=== PATIENT | male | born 1950 | race Caucasian/White ===

== ENCOUNTER 2022-03-10 15:00 | Outpatient (RCR) | payer OTHER, SELFPAY | END 2022-06-13 09:45 | disposition home or self-care (01) | PROVIDERS: PCP Family Medicine; Visit Provider Family Medicine | DX: M54.50 Low back pain, unspecified (principal); M51.36 Other intervertebral disc degeneration, lumbar region; Z51.89 Encounter for other specified aftercare | CPT/HCPCS: 97110; 97162 ==

== ENCOUNTER 2022-09-14 08:19 | Outpatient (CLI) | payer OTHER, SELFPAY | END 2022-09-14 08:20 | disposition home or self-care (01) | LOC: NFLDREF 09-22 11:53 | PROVIDERS: PCP Family Medicine; Referring Provider Family Medicine; Visit Provider Family Medicine | DX: Z00.00 Encounter for general adult medical examination without abnormal findings (principal); R79.89 Other specified abnormal findings of blood chemistry; E78.5 Hyperlipidemia, unspecified; I10 Essential (primary) hypertension; E55.9 Vitamin D deficiency, unspecified | CPT/HCPCS: 80053; 80061; 82306 ==

== ENCOUNTER 2024-01-24 07:54 | Outpatient (CLI) | payer OTHER, SELFPAY | END 2024-01-24 07:55 | disposition home or self-care (01) | LOC: NFLDREF 11:31 | PROVIDERS: PCP Family Medicine; Referring Provider Family Medicine; Visit Provider Family Medicine | DX: I10 Essential (primary) hypertension (principal); E78.5 Hyperlipidemia, unspecified; E55.9 Vitamin D deficiency, unspecified; R79.89 Other specified abnormal findings of blood chemistry; E66.9 Obesity, unspecified; D51.8 Other vitamin B12 deficiency anemias; E53.8 Deficiency of other specified B group vitamins | CPT/HCPCS: 80053; 80061; 82306; 82607; 82728; 83540; 83550 ==

== ENCOUNTER 2024-04-26 09:48 | Outpatient (CLI) | payer OTHER, SELFPAY ==
--- OUTSIDE RECORDS SUMMARY | 2024-04-26 13:35 | XMS_ITS | Continuity of Care Document ---
Author Organization [facility] Address [address] [place] [address] Phone Care Team Providers Care Net C Developer Name Role Phone Jasen Lock Unavailable Unavailable Allergies, Adverse Reactions, Alerts Substance Reaction Status Criticality No Known Allergies Active No Inform ation Medications Medication Instructions Dosage Effective Dates (start - stop) Status Comments LISINOPRIL (unknown strength) Not Available - Active Procedures Procedure Date Office/Outpatient Visit,Est, Mod 2018 X-Ray Exam Lower Spine 2-3 Views 2018 Office/Outpatient Visit,Est, Mod 2016 X-Ray Exam Lower Spine 2-3 Views 2016 Office/Outpatient Visit,Est, Mod 2016 X-Ray Exam Lower Spine 2-3 Views 2016 Office/Outpatient Visit,Est, Mod 2016 X-Ray Exam Lower Spine 2-3 Views 2016 Postop Followup Visit X-Ray Exam Lower Spine 2-3 Views 2015 Arthdsis Post/Posterolatrl/Postinterbody Lumbar Arthdsis Post/Posterlatrl/Postintrbdyadl Spc/Seg Spine Fusion, Each Add'Lvertebra 2015 Remove Lumbar Spine Lamina, 1 Seg Insert Spine Seg Fix, Post, 3-6 Seg Apply Spinal Prosthetic Device 16 Autograft, Spine Surg, Morselized Autograft, Spine Surgery, Local 016 Allograft, Spine Surg, Morselized Pa Arthdsis Post/Posterolatrl/Postinterb benita Lumbar Pa Arthdsis Post/Posterlatrl/Postintrbdy adl Spc/Seg Pa Assist Spine Fusion, Each Add'Lverteb ra Remove Lumbar Spine Lamina, 1 Seg Pa Assist Insert Spine Seg Fix, Post, 3- 6 Seg Pa Assist Apply Spinal Prosthetic Device Pa Assist Autograft, Spine Surg, Morsebandar zed Postop Followup Visit Remove Lumbar Spine Lamina, 1 Seg Pa Assist Remove Lumbar Spine Lamina, 1 Seg Office/Outpatient Visit,Est, Mod 2015 Office/Outpatient Visit,Est, Mod 2014 Office/Outpatient Visit,New, Low 2014 Advance Directives Directive Yes / No Effective Date File Name No Information Encounters Encounter Description Practice Location Reason(s) For Visit Diagnoses Date Provider Providers Copied on Encounter Office/Outpa tient Visit,Est, Mod [facility], [address], [place], [place], [id number] , [phone] [facility] Other spondylosis, lumbar region 9 Aris Aggarwal. [facility], [address] [place] [address] [address], [place], [place], [id number], [place]. tel:[phone] Referring Provider: Josh Keith, [facility] [address], [place], [address]. tel:[phone] Office/Outpa tient Visit,Est, Mod [facility], [address], [place], [place], [id number] , [place] tel:[phone] [facility] Spinal stenosis, lumbar region NOS 7 Navin Oseguera. [facility], [address] [facility] , [place], [address], [place]. tel:[phone] Referring Provider: Josh Keith, [facility] [address], [place], [address]. tel:[phone] Office/Outpa tient Visit,Est, Mod [facility], [address], [place], [place], [id number] , [place] tel: [phone] [facility] Spinal stenosis, lumbar region 7 Navin Oumar. [facility], [address] [facility] [place], [address], [place]. tel:[phone] Referring Provider: Josh Keith, [facility] [address] [facility], [place], [address]. tel:[phone] Office/Outpa tient Visit,Est, Mod [facility], [address], [place], [place], [id number] , [place] tel: [phone] [facility] Spinal stenosis, lumbar region Fe 7 Navin Oseguera. [facility], [address] [place], [address], [place]. tel:[phone] Referring Provider: Josh Keith, [facility] [address] [facility], [place], [address]. tel:[phone] [facility], [address], [facility], [id number] , [place] tel: [phone] [facility] - [facility] Encounter for other specified surgical aftercare 6 Aris Aggarwal. [facility], [address] [place] [address] [address], [facility] [place], [id number], [place]. tel:[phone] Referring Provider: Josh Keith, [facility] [address] [facility], [place], [address]. [phone] [facility], [address], [facility] [place], [id number] , [place] tel: [phone] [facility] [place] Arthrodesis status 6 Navin Oseguera. [facility], [address] [facility] [address] [place], [place], [address], [place]. tel:[phone] [facility], [address], [place], [place], [id number] , [place] tel: [phone] [facility] No Information 6 Navin Oseguera. [facility], [address], [place], [address], [place]. tel:[phone] Referring Provider: Josh Keith, [facility] [address] [place], [address]. [phone] [facility], [address], [place], [place], [id number] , [place] tel: [phone] [facility] - [facility] Spinal stenosis, lumbar region Sep- 6 Aris Aggarwal. [facility], [address] [place] [address] [address], [place], [place], [id number], [place]. tel:[phone] Referring Provider: Josh Keith, [facility] [address] [place], [address]. [phone] [facility], [address], [place], [place], [id number] , [place] [phone] [facility] No Information 6 Navin Oseguera. [facility], [address], [place], [address], [place]. tel:[phone] Referring Provider: Josh Keith, [facility] [address] [place], [address]. tel:[phone] Office/Outpa tient Visit,Est, Mod [facility], [address], [place], [place], [id number] , [place] tel:[phone] [facility] - [facility] OverweightSpinal stenosis, lumbar region 6 Navin Oseguera. [facility], [address], [place], [address], [place]. tel:[phone] Referring Provider: Josh Keith, [facility] [address] [place], [address]. tel:[phone] Office/Outpa tient Visit,Est, Mod [facility], [address], [place] , [place], [id number] , [place] tel:[phone] [facility] Spinal stenosis, lumbar regionOverweight 5 Navin Oseguera. [facility], [address] , [place], [address], . tel:[phone] Referring Provider: Josh Keith, [facility] [address] [place], [address]. tel:[phone] Office/Outpa tient Visit,New, Low [facility], [address], [facility], [place], [id number] , [place] [phone] [facility] Acquired spondylolisthesis 5 Navin Oseguera. [facility], [address] [facility] , [place], [address], [place]. tel:[phone] Referring Provider: Josh Keith, [facility] [address] [place] [address], [address]. tel:[phone] Family History Family Member Type Diagnosis Age At Onset No Information Payers Payer name Insurance type Covered republican ID Authoriza tion(s) [employer] Medicare Gold Choice Armida CHUA [id number] Social History Type Description Quantity Date Captured Comments Alcohol Use Details Unknown Caffeine Use Details Unknown Tobacco Use Status No Information Smoking Status No Information Sex Male Vital Signs Date / Time: Height Weight BMI Pulse Rate Blood Pressure Temperature Respiratory Rate Body Surface Area Head Circumference Head Circ. Percentile Wt./Wing. Percentile BMI percentile Pulse Ox Inhaled Ox 3:06 PM 66.50 in 97.522 kg (215.00 lbs) 34.1 8 kg/m eter (2) 66 /min 152/101 mm[Hg] Chief Complaint And Reason For Visit No Information Reason For Referral Reason For Referral No Information Plan Of Treatment Date Type Action Status Future Order: Radiology Order SI Joint Injection (SIJOINT), Ordered on: Ordered Future Order: Radiology Order AP Lateral Lumbar (APLatLumb), Ordered on: Ordered History Of Present Illness Encounter Date Complaint History Of Prese nt Illness No Information Functional Status Date Functional Assessmen t No Information Instructions Date Instruction Additional Infor mation Blood Pressure Management Relate d to Unspecified Essential Hypertension Weight management: I nstructed to return to General Practitioner timeframe: 1 Month. Related to Overweight Weight Management Education Rela nya to Overweight Instructed to return to General Practitioner timeframe: 1 Month. Related to Unspecified Essential Hypertension Weight management: I nstructed to return to General Practitioner timeframe: 1 Month. Related to Overweight Weight Management Education Rela nya to Overweight Weight management: I nstructed to return to General Practitioner timeframe: 1 Month. Related to Overweight Weight Management Education Rela nya to Overweight Weight Management Education Rela nya to Overweight Weight management: I nstructed to return to General Practitioner timeframe: 1 Month. Related to Overweight Weight management: R efer to Referral to General Practitioner timeframe: 1 Month. Related to Overweight Weight Management Related to Ove aubrey Assessments Type Assessment Date assessment Other spondylosis, lumbar region Patient Care Teams Name Effective Dates (start - stop) Status Members No Information
--- OUTSIDE RECORDS SUMMARY | 2024-04-26 13:36 | XMS_ITS | Encounter Summary ---
Author Organization [facility] Address [address] [place] [address] Care Team Providers Care Director Of Graduate Medical Education Name Role Phone Elsewhere, Pcp Primary Care Provider Unavailabl e Reason for Referral * MRI/CAT/PET Scan (Routine) - Authorized Specialty Diagnoses / Procedures Referred By Alejandro almaraz Referred To Contact Radiology Diagnoses Primary Malignant Neoplasm Of Prostate (HCC) 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) Rising Prostate Specific Antigen Following Treatment For Malignant Cancer Of Prostate Procedures MR Abdomen without and with IV Contrast Sayda Roberson P.A.-C., M.S. [address] [place] [address] [facility] Referral ID Status Reason Start Date Expiration Date V isits Requested Visits Authorized [id number] Authorized 02/27/2024 02/26/2025 1 1 * Outpatient (Routine) - Authorized Specialty Diagnoses / Procedures Referred By Alejandro almaraz Referred To Contact Urology Sayda Roberson P.A.-C., M.S. [address] [place] [phone] Artemio Dover M.D. [address] [place] [phone] Referral ID Status Reason Start Date Expiration Date V isits Requested Visits Authorized [id number] Authorized 02/27/2024 08/28/2025 1 1 * MRI/CAT/PET Scan (Routine) - Authorized Specialty Diagnoses / Procedures Referred By Alejandro almaraz Referred To Contact Diagnoses Primary Malignant Neoplasm Of Prostate (HCC) 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) Rising Prostate Specific Antigen Following Treatment For Malignant Cancer Of Prostate Procedures PET CT Skull to Thigh PSMA Sayda Roberson P.A.-C., M.S. [address] [place] [phone] [facility] Referral ID Status Reason Start Date Expiration Date V isits Requested Visits Authorized [id number] Authorized 02/27/2024 02/26/2025 1 1 Reason for Visit * Outpatient (Routine) - Closed Specialty Diagnoses / Procedures Referred By Alejandro almaraz Referred To Contact Urology Diagnoses Primary Malignant Neoplasm Of Prostate (HCC) 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) Rising Prostate Specific Antigen Following Treatment For Malignant Cancer Of Prostate Lacy Dennis, AMADOU, C.N.P., M.S.N. [address] [place] [phone] Artemio Dover M.D. [address] [place] [phone] Referral ID Status Reason Start Date Expiration Date Visits Re quested Visits Authorized [id number] Closed 11/23/2023 05/24/2025 1 1 Encounter Details Date Type Department Care Team (Late st Contact Info) Description 02/27/2024 10:30 AM CDT Office Visit Department of Urology in [place], [place] [address] [place] [address] Artemio Dover M.D. [address] [place] [phone] Primary Malignant Neoplasm Of Prostate (HCC) (Primary Dx); Secondary Malignant Neoplasm Bone (HCC); Secondary Malignant Neoplasm Liver (HCC); Rising Prostate Specific Antigen Following Treatment For Malignant Cancer Of Prostate Social History Tobacco Use Types Packs/Day Years Used Date Smoking Tobacco: Former Cigarettes 0 07/25/1961 - 12/23/1969 Passive Smoke Exposure: Past Smokeless Tobacco: Never Comments:Used lightly ,stopp ed 50years ago Alcohol Use Standard Drinks/Week Comments Yes 2 (1 standard drink = 0.6 oz pur e alcohol) Negligable one beer/ week [facility] [employer] Answer Date Recorded In the past 12 months has [employer], gas, oil, or water [employer] threatened to shut off services in your home? No 11/18/2023 Humiliation, Afraid, Rape, and Kick questionnair e Answer Date Recorded Within the last year, have y ou been afraid of your partner or ex-partner? No 09/28/2022 Within the last year, have y ou been humiliated or emotionally abused in other ways by your partner or ex-partner? No Within the last year, have y ou been kicked, hit, slapped, or otherwise physically hurt by your partner or ex-partner? No 09/28/2022 Within the last year, have y ou been raped or forced to have any kind of sexual activity by your partner or ex-partner? No 09/28/2022 Social Connection and Isolat ion Panel [NHANES] Answer Date Recorded In a typical week, how many times do you talk on the phone with family, friends, or neighbors? More than three times a week 09/28/2022 How often do you get togethe r with friends or relatives? Once a week 09/28/2022 How often do you attend chur ch or druze services? More than 4 times per year 09/28/2022 Do you belong to any clubs o r organizations such as scientology groups, unions, fraternal or athletic groups, or school groups? Yes 09/28/2022 How often do you attend meet ings of the clubs or organizations you belong to? More than 4 times per year 09/28/2022 Are you , , di vorced, , never , or living with a partner? 09/28/2022 AUDIT-C Answer Date Recorded Q1: How often do you have a drink containing alc ohol? 2-4 times a month 09/28/2022 Q2: How many drinks containi ng alcohol do you have on a typical day when you are drinking? 1 or 2 09/28/2022 Q3: How often do you have si x or more drinks on one occasion? Never 09/28/2022 Overall Financial Resource Strain (CARDIA) Answe r Date Recorded How hard is it for you to pa y for the very basics like food, housing, medical care, and heating? Not very hard 09/28/2022 [facility] - Occupational Stress Questionnaire Answer Date Recorded Do you feel stress - tense, restless, nervous, or anxious, or unable to sleep at night because your mind is troubled all the time - these days? Not at all 09/28/2022 Exercise Vital Sign Answer Date Recorde d On average, how many days pe r week do you engage in moderate to strenuous exercise (like a brisk walk)? 3 days 11/18/2023 On average, how many minutes do you engage in exercise at this level? 30 min 11/18/2023 Hunger Vital Sign Answer Date Recorded Within the past 12 months, y ou worried that your food would run out before you got the money to buy more. Never true 11/18/19 24 Within the past 12 months, t he food you bought just didn't last and you didn't have money to get more. Never true 11/18/2023 PRAPARE - Transportation Answer Date Re corded In the past 12 months, has l ack of transportation kept you from medical appointments or from getting medications? No 10/2023 In the past 12 months, has l ack of transportation kept you from meetings, work, or from getting things needed for daily living? No 11/18/2023 Nutrition Answer Date Recorded On average, how many serving s of fruits and vegetables do you eat per day (serving size is equal to 1 cup or approximately the size of a tennis ball)? 3-5 11/18/2023 Dental Answer Date Recorded Dental: Regular Dentist Yes 10/02/19 21 Employment Answer Date Recorded Employment status Retired 11/18/2023 Housing Stability Answer Date Recorded What is your living situation today? I have a [facility] place to live 11/18/2023 Education Answer Date Recorded What is the highest level of school you have completed or the highest degree you have received? Master's degree (e.g., MA, MS, [employer], MEd, PRACTICE SPECIALIST, [employer]) 10/01/2020 Sex and Gender Information Value Date Recorded Sex Assigned at Male 02/10/2020 2:14 PM CDT Gender Identity Male 01/30/2020 5:22 PM CDT Sexual Orientation Straight 02/27/2020 8: 34 PM CDT documented as of this encounter Functional Status Functional Status Response Date of Assess ment Does this person have seriou s difficulty walking or climbing stairs? No 08/03/2022 documented as of this encounter Progress Notes * Sayda Roberson P.A.-C., M.S. - 02/27/2024 10:30 AM CDT SUBJECTIVE CHIEF COMPLAINT/REASON FOR VISIT Advanced prostate cancer follow up. HISTORY OF PRESENT ILLNESS Mr. Carlos Espinosa is a 73 y.o. pleasant gentleman, who presents today for repeat evaluation foradvanced prostate cancer. His oncologic history is as follows: 1. August 21, 2018: The patient was seen for his annual physical examination and noted that he haddifficulty maintaining an erection over the last several months. He was prescribed sildenafil. Prostate examination at that time was normal. PSA was 6.55 ng/mL. 2. November 02, 2018: The patient presented to Dr. Cotter for excruciating back pain that became debilitating with an episode of hematospermia. Prostate examination was normal. PSA was 13.50 ng/mL (possibly drawn after OLU). The patient was referred to Dr. Murali Viveros for additional workup. 3. November 05, 2018: Urology consultation with Dr. Viveros where physical examination revealed a 50 g prostate with a 5 mm nodule on the right mid gland. Recommended proceeding with a prostate MRI. 4. November 09, 2018: MRI of the prostate demonstrated a prostate volume of 72.6 cc. There was a poorly defined T2 hypointense mass in the peripheral zone, 7-8 o'clock position, that measured 2.1 x 2.2 cm. There was suspected extraprostatic extension. The mass was seen 2.7 cm from the apex, 3.2 cm from the base, and 1.7 cm from the midline. Additional foci of T2 shortening within the peripheral zone. PI-RADS 5. There were areas of marrow replacement within the sacrum and right iliac bone. Similar findings were seen at the posterior column of the left acetabulum. The largest lesion in the sacrum measured 8.0 cm. 5. November 22, 2018: UroNav biopsy of the prostate was performed by Dr. Viveros. Pathology of the left prostate demonstrated adenocarcinoma of the prostate, Denver score 3+3=6, discontinuously involving 5-70% of the length of 3 cores, perineural invasion not seen. Pathology of the right prostate demonstrated adenocarcinoma the prostate, Denver score 4+4=8, involving 50-90% of the length of the cores,perineural invasion present. Pathology of lesion 1 demonstrated adenocarcinoma of the prostate, Denver score 4+4=8, involving 90% of the length of the cores, perineural invasion present. 6. November 23, 2018: Nuclear medicine whole-body bone scan demonstrated multiple focal areas of abnormally increased uptake suspicious for skeletal metastases. Areas of involvement include bilateral ribs, several levels in the thoracic and lumbar spine, in the mid and right sacrum, and in the pelvis bilaterally. 7. November 28, 2018: The patient was started on Casodex 50 mg daily. 8. December 04, 2018: The patient received an Eligard 22.5 mg injection at [facility]. 9. December 05, 2018: MRI of the thoracic spine demonstrated vertebral osseous metastatic disease noted posteriorly on the right at T9 with pedicle involvement and central and to the left at T12 and L1 with left L1 pedicle involvement. No extraosseous tumor. No central stenosis or cord compression and no enhancing intradural or intramedullary metastasis. Metastatic disease involved left posterior T7 rib in likely also posterior left T6 rib. No spinal canal tumor and no central stenosis or cord impingement. No pathologic compression fractures. MRI of the lumbar spine demonstrated superior compression fracture of S1 with metastatic involvement of S1 and S2, posterior extraosseous tumor encroached on the sacral spinal canal, right greater than left S1 root/ganglion and also S2 roots. Metastases also involved right and to a lesser extent left iliac bones and T12 and L1 vertebral bodies. Extraosseous tumor surrounding right L5 ganglion and proximal nerve. MRI of the pelvis demonstrated osseous metastatic disease in the sacrum and bilateral iliac bones in visualized lower lumbar spine. Sacral metastases with pathologic compression fracture. The prostate was heterogeneous with a T2 hypointense enhancing lesion in the right posterior lateral peripheral zone. No visible pelvic lymphadenopathy. 10. December 14, 2018 through December 20, 2018: Patient treated with radiotherapy to the acetabular regions and sacrum to a dose of 2000 cGy in 5 fractions to both areas. He also was treated to the intermediate cuneiform bone of the right foot to a dose of 2000 cGy in 5 fractions. 11. January 01, 2019: The patient initiated on Zytiga with prednisone. 12. January 02, 2019: PSA 4.86 ng/mL. 13. January 14, 2019: PSA 1.84 ng/mL. Casodex was stopped by Dr. Swenson. 14. February 11, 2019: PSA 0.51 ng/mL. 15. March 05, 2019: The patient received a Lupron 22.5 mg (3 month) injection. 16. March 11, 2019: PSA 0.11 ng/mL. 17. April 04, 2019: PSA <0.06 ng/mL. 18. April 2019: PSA undetectable. C-11 choline PET/CT scan demonstrated increased choline uptake within the prostate bed and multiple bones consistent with involvement by prostate carcinoma. No evidence of teodora metastasis. Continues on Lupron injections every 3 months. 19. November 29, 2019: PSA became detectable at 0.29 ng/mL. Continues on Lupron 22.5 mg (3 month) injections. Zytiga was discontinued sometime in the spring. 20. December 23, 2019: PSA 0.40 ng/mL. MRI of the thoracic spine demonstrated enlargement of the marrow replacing and enhancing metastasis in the T9 vertebral body that involved the intervertebral body and right pedicle. New marrow replacing enhancing lesion in the T10 vertebral body involving the posterior aspect of the vertebral body, left pedicle, lamina, bilateral pars interarticulars, and spinousprocess. There was abnormal enhancement of the dorsal epidural space measuring approximately 3 mm x5.8 cm from the T9-T11 spinous processes. There was minimal effacement of the thecal sac. There wasalso paraspinal soft tissue extension along the left transverse process. New marrow replacing lesion in the T11 posterior aspect of vertebral body, pedicle, and superior articular process. Enlargement of marrow replacing enhancing lesion involving the majority of the T12 vertebral body. No definitepedicle involvement. Enlargement of marrow replacing enhancing lesion in the L1 vertebral body. 21. December 26, 2019 through January 01, 2020: Patient received palliative radiotherapy to T8 through L2 spine to a total dose of 2000 cGy in 5 fractions. 22. January 10, 2020: C11 choline PET-CT scan demonstrated a new focus of increased choline activity within the sclerotic bone lesion in the anterior right 4th rib. Abnormal choline activity within the sclerotic bone lesion in the posterior left 7th rib had increased, SUV max 5.4. Increasing abnormal choline activity in the T9 vertebral body. New abnormal choline activity at T10 predominantly the left posterior vertebral body and posterior elements, left T11 pedicle, T12-L2 vertebral bodies, and right posterior elements of L3. Little change in the mild choline activity associated with sclerotic bone metastases in the pelvis. No abnormal choline avid lymph nodes appreciated. Stable mild nonspecific choline activity in the central prostate gland. 23. January 21, 2020 through July 07, 2020: Completed 8 cycles of docetaxel based chemotherapy. He also continued to receive zoledronic acid and leuprolide. 24. February 11, 2020: PSA 1.3 ng/ml. 25. February 2020: PSA decreased to 0.29 ng/ml. C11 choline PET-CT scan demonstrated that the cholineavid bone metastatic disease in the lower thoracic and lumbar spine had improved. Choline activity within the T9 vertebral body had decreased to SUV max 2.4 in the choline avid sclerotic bone metastatic disease involving the right posterior elements of L3 showed decreased activity with SUV max 3.4.Abnormal focus of choline activity within the sclerotic disease in the anterior right 4th rib had resolved while the choline activity within the sclerotic bone disease in the posterior left 7th rib had improved, SUV max 2.5. The mildly choline avid sclerotic bone metastatic disease within the pelvis most notably the sacrum was not appreciably changed. Stable low-grade activity in the central prostate was likely reactive. No new suspicious choline avid lymph nodes. 26. March 24, 2020: PSA 0.12 ng/ml. 27. April 08, 2020: MRI of the pelvis demonstrated persistent but diminished signal abnormalitywithin the sacrum and iliac bones, right greater than left, corresponding to osseous metastatic disease. No discrete pathologic fracture identified. Downsloping/loss of height lateralizing to the right superior endplate of S1. Additional low T1 signal sclerotic osseous metastasis including posterior left acetabulum, similar. No pelvic lymphadenopathy. No inguinal lymphadenopathy. 28. April 17, 2020: MRI of the lumbar spine demonstrated stable metastatic involvement of the S1 vertebra and right iliac bone, with no pathological enhancement. Stable moderate spinal stenosis and bilateral neural foraminal stenosis, L1-2 level, due to diffuse posterior disc bulging. Progressive m etastatic involvement of the T11, T12, and L1 vertebra when compared to December 05, 2018. 29. May 05, 2020: PSA 0.19 ng/ml 30. May 26, 2020: PSA <0.10 ng/ml 31. July 15, 2020: C11 choline PET-CT scan demonstrated newly stable size and intensity of tracer uptake in previously seen sclerotic metastases. The left acetabulum lesion had SUV max 2.9 and the sacral lesion had SUV max 3.8. No new choline avid osseous lesions. Choline avid healing left lower rib fractures. Further decreasing choline uptake of the irradiated thoracolumbar metastases. Nearly stable patchy choline uptake in the central prostate gland. No suspicious choline avid lymph nodes. 32. 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 33. September 09, 2020: MRI of the lumbar spine demonstrated unchanged bony metastatic disease within the T11, T12, L1, L5, sacral S1 and S2 elements, and bilateral iliac bones. Stable L2-L5 spinal fixation. 34. September 30, 2020: PSA <0.10 ng/ml. 35. October 26, 2020: PSA <0.10 ng/ml. Dr. Dover indicated that patient has been treated very effectively and would not change his current treatment regimen. Patient should continue on Olaparib and androgen deprivation therapy locally. 36. December 09, 2020: PSA <0.10 ng/ml. Patient seen by his local oncologist. He is tolerating targeted therapy without any side effects. He continues on olaparib 300 mg twice a day, Lupron and zoledronic acid every 3 months. 37. March 08, 2021: PSA <0.10 ng/ml. 38. April 05, 2021: PSA 0.12 ng/ml. 39. May 11, 2021: PSA <0.10 ng/ml. Imaging demonstrated interval improvement of multiple skeletal metastases. There was new uptake surrounding the lumbar hardware in L3 vertebra that is indeterminate that could represent inflammation versus active metastatic lesion. Dr. Dover recommended he continue on his current treatment therapies of androgen deprivation therapy and Olaparib 300 mg twice daily through his local Medical Oncologist. In regards to L3, Dr. Dover discussed with Dr. Quispe whomrecommended CT lumbar spine and labs. 40. July 01, 2021: Return visit with Dr. Iban Quispe. Recommended observation since no evidence of infection. 41. August 13, 2021: PSA <0.10 ng/mL. C11 PET choline scan notes interval progression of his sacrum with maximum SUV of 5 versus 3.8 previously. There was also a sclerotic lesion in the sacrum which is more intense with a maximum SUV of 6.7 versus 3.2. There is interval increase within the surrounding screw on the right-sided L3 vertebral body which may be related inflammation of a loosening screw or infection versus metastatic disease. Pulmonary infiltrate on the left lower lobe. Recommended MRI of lumbar spine, return visit with Dr. Quispe, and radiation Oncology consultation. 42. August 26, 2021: MRI of lumbar spine noted the choline uptake at the right side of L3 is suggestive of metastatic activity in the posterior aspect of the L3 vertebral body and extending into the posterior elements and epidural space at that level. Multiple metastatic lesions throughout the lumbar spine and pelvis. Spinal canal stenosis at L1-L2. 43. September 07, 2021: Met with Radiation Oncology who recommended IMRT to the suspicious spine lesion. 44. September 13, 2021-September 17, 2021: Patient completed SBRT to L3 through 4 and sacrum with 5 fractions with 2000 cGy under the direction of Dr. Myra Valle. 45. November 15, 2021: He received Eligard injection and Zometa. He also continues on Olaparib. 46. December 22, 2021: PSA <0.10 ng/mL. C11 PET choline scan notes prior resolution of the lumbar spine and sacral metastasis. Unfortunately there was a new lesion on the right 4th rib. 47. January 04, 2022: SBRT to right 4th and 10th rib in 1 fraction with [address] Valle at [facility]. 48. February 21, 2022: PSA <0.10 ng/mL. 49. March 25, 2022: PSA <0.10 ng/mL. CBC and CMP are stable. C11 PET choline scan notes decreased activity within the right 4th and 10th rib representing interval response. No other evidence ofdisease. He continues on Olaparib 300 mg twice daily with Lupron injections locally. Recommended toreturn in 3 months with a PSMA scan. 50. May 16, 2022: PSA 0.11 ng/mL 51. June 13, 2022: PSA 0.18 ng/mL 52. June 27, 2022: PSA increased to 0.2 ng/mL. Hemoglobin 10.1. Platelet count 207. WBC 3. Sodium 137. Potassium 4.3. MRI pelvis demonstrated nonspecific edema/inflammatory changes in the right gluteus silvana without any findings to explain right ischial tuberosity pain. Chronic sacral insufficiency fractures and evidence of treated metastasis. He is scheduled to meet with Dr. Quispe on the 08 of July. PSMA scan demonstrated radiotracer uptake in the medial and lateral aspects of the 11th 7th rib, mild uptake in the radiated right 4th and 10th rib. Multiple avid lesions within the left C7 transverse process, right T1 transverse process, right clavicle, right scapula, and L1 vertebral body. PSMA expressions score of 3. There was also on enlarging 3.6 cm hepatic metastasis (previously 1.5 cm in March 2022). Patient continues on leuprolide injections and Olaparib. He is scheduled to meet with Dr. Hess tomorrow. 53. July 01, 2022: Patient met with Dr. Valle to discuss radiation oncology. 54. July 05, 2022 through July 12, 2022: Received SBRT. 2000 cGy in 5 fractions to the [id number] rib. 55. July 26, 2022: Patient underwent IR hepatic artery radio embolization. 56. August 30, 2022: PSA declined to 0.12 ng/mL. Hemoglobin 10.8. Platelet 209. WBC 3.6. He is off Lynparza. He will continue on leuprolide injections. Labs adequate to proceed with cycle #1 of 177PSMA Lutetium treatment. 57. October 11, 2022: PSA 0.17 ng/mL. Received cycle #2 of 177 PSMA Lutetium treatment. 58. November 14, 2022: PSA 0.11 ng/ml. Recommended to continue off Lynparza and remain on ADT. Last 3 month injection was November 07, 2022. 59. November 23, 2022: PSA is now <0.10 ng/mL. Hemoglobin 11.8. WBC 4.3. Platelet count 202. CMP stable to proceed with cycle #3 Pluvicto. PSMA scan demonstrates overall marked improvement of his hepatic and osseous metastasis. Of note, that his hepatic lesion has decreased to 1.8 cm from prior 3.6. 60. January 04, 2023: PSA <0.10 ng/mL. Hemoglobin 11.2. WBC 4.0. Platelet count 168. CMP stable to proceed with cycle # 4 of Pluvicto therapy. 61. February 15, 2023: PSA <0.10 ng/mL. Hemoglobin 10.6. WBC 3.5. Platelet count 170. CMP stable. MR abdomen shows post treatment changes in hepatic segment 8 without definite residual enhancement. No new suspicious liver lesions. PSMA PET scan shows significant interval treatment response with only low-level radiotracer uptake within the RIGHT scapula on examination. No new or progressive disease. Patient presents today prior to his 5th cycle of Pluvicto. 62. March 28, 2023: He presents today prior to his 6th cycle of 177 PSMA lutetium treatment. PSA <0.10 ng/mL. Hemoglobin stable at 10.2. Platelet count 165. WBC count 4. CMP stable to proceed.He continues on hormone therapy. He is due for his next leuprolide injection in April of 2023. He continues to follow with Dr. Kelley at [facility]. He is tolerating the treatments well. 63. May 23, 2023: PSA <0.10 ng/ml. C11 PET choline scan demonstrates no abnormal uptake within previously seen PSMA avid right scapular metastasis. Mild choline uptake in few osseous metastases in which no abnormal PSMA uptake was seen. No other choline avid recurrent or metastatic disease. Patient was advised to continue on androgen deprivation therapy. 64. August 25, 2023: PSA <0.10 ng/ml. PSMA PET scan is negative for PSMA avid recurrent or metastatic disease. 65. November 23, 2023: PSA <0.10 ng/ml. C11 choline PET scan shows stable mild radiotracer uptake in afew osseous lesions including T8, T11, T12, and L4. 66. February 26, 2024: PSA <0.10 ng/ml. PSMA PET scan demonstrates no significant change since previous. No convincing evidence of new or progressive metastatic disease. PSMA expression score 0. Patient presents today for follow-up of his advanced prostate carcinoma. Patient continues on androgen deprivation therapy injections through Dr. Kelley's office. Lower Urinary Symptoms Urinary Symptoms Intake General Oncologic Symptoms Urinary Cancer Intake REVIEW OF SYSTEMS OBJECTIVE PHYSICAL EXAMINATION URO Physical Exam LABORATORY Lab Results Component Value Date/Time PSA <0.10 02/26/2024 10:15 AM Lab Results Component Value Date/Time CREATININE 1.01 10/18/2023 09:14 AM ALKPHOS 48 02/26/2024 10:15 AM ALKPHOS 54 05/01/2023 07:54 AM AST 24 02/26/2024 10:15 AM AST 24 05/01/2023 07:54 AM ALT 20 02/26/2024 10:15 AM BILITOT 0.3 02/26/2024 10:15 AM BILITOT 0.3 05/01/2023 07:54 AM BILIDIR <0.2 02/26/2024 10:15 AM BILIDIR <0.2 05/16/2022 10:[address] Skull to Thigh PSMA Result Date: 02/26/2024 Impression: No significant change since PSMA PET/CT 08/25/2023. No convincing evidence of new or progressing metastatic disease. 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 Carlos Espinosa in clinic today in conjunction with Dr. Dover. Together we reviewed and interpreted his recent imaging and labs. Most recent PSA is undetectable. Liver testing is within normal limits. Testosterone is pending. PSMA PET scan demonstrates no significant change from previous. No evidence of new or progressive metastatic disease. PSMA expression score 0. Prompted by these findings, patient will remain on androgen deprivation therapy. He will return in 3 to 4 months for repeat evaluation. Given his history of hepatic metastases and prior embolization,we will have him undergo repeat MRI of the abdomen. We discussed switching back to C11 PET choline scan after his next evaluation. Mr. Carlos Espinosa was instructed to return for follow up appointment in 3 months to perform thefollowing laboratory tests: PSA, Testosterone, Potassium, Alkaline phosphatase, AST, ALT, Total Bilirubin, and Direct Bilirubin. In addition, Mr. Carlos Espinosa will undergo an MRI and [id number] to identify sites of prostate cancer relapse after failed treatment, per medical necessity and per FDA, NCCN and CMS guidelines. All other questions were answered at the time of the visit. He is in agreement with this plan. I personally spent over half of a total 35 minutes in counseling and discussion with the patient and coordination of care as described above. Signed by: Sayda Roberson P.A.-C., M.S. 02/27/2024 10:15 AM CDT documented in this encounter Plan of Treatment Upcoming Encounters Date Type Department Care Team (Latest Contact Info) Description 05/13/2024 10:40 AM CDT Appointment Department of Pain Medicine in [address] [phone] Markel Avila M.D. [address] [place] [phone] Discharge Disposition: Home or Self Care 06/03/2024 10:30 AM ADMINISTRATIVE PROFESSIONAL Clinical Communication Virtual Review in [place], [place] [address] [place] [phone] 06/05/2024 10:00 AM ADMINISTRATIVE PROFESSIONAL Lab Department of Infusion Therapy in [address] [phone] Sayda Roberson P.A.-C., M.S. [address] [place] [phone] 06/05/2024 11:45 AM ADMINISTRATIVE PROFESSIONAL Appointment Department of Radiology, [facility], in [place], [place] [address] [place] [address] Sayda Roberson P.A.-C., M.S. [address] [place] [phone] 06/05/2024 2:45 PM ADMINISTRATIVE PROFESSIONAL Appointment Department of Radiology, [facility], in [place], [place] [address] [place] [phone] Sayda Roberson P.A.-C., M.S. [address] [place] [phone] 06/06/2024 10:00 AM ADMINISTRATIVE PROFESSIONAL Office Visit Department of Urology in [place], [place] [address] [place] [address] Artemio Dover M.D. [address] [place] [phone] 06/26/2024 9:00 AM ADMINISTRATIVE PROFESSIONAL Office Visit Department of Oncology in [address] [phone] Donny Kelley M.B.B.S. [address] [place] [phone] 06/26/2024 9:30 AM ADMINISTRATIVE PROFESSIONAL Infusion Department of Infusion Therapy in [address] [phone] Donny Kelley M.B.B.S. 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) Rising Prostate Specific Antigen Following Treatment For Malignant Cancer Of Prostate Expected: 05/29/2024, Expires: 02/26/2025 Testosterone, Total by Mass Spectrometry, Serum Lab Routine Primary Malignant Neoplasm Of Prostate (HCC) 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) Rising Prostate Specific Antigen Following Treatment For Malignant Cancer Of Prostate Expected: 05/29/2024 (Approximate), Expires: 02/26/2025 MR Abdomen without and with IV Contrast Imaging RAD - Routine (most inpatients and all outpatients) Primary Malignant Neoplasm Of Prostate (HCC) 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) Rising Prostate Specific Antigen Following Treatment For Malignant Cancer Of Prostate Expected: 06/03/2024, Expires: 05/29/2025 Alkaline Phosphatase Lab Routine Primary Malignant Neoplasm Of Prostate (HCC) 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) Rising Prostate Specific Antigen Following Treatment For Malignant Cancer Of Prostate Expected: 05/29/2024, Expires: 02/26/2025 ALT (Alanine Aminotransferase) Lab Routine Primary Malignant Neoplasm Of Prostate (HCC) 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) Rising Prostate Specific Antigen Following Treatment For Malignant Cancer Of Prostate Expected: 05/29/2024, Expires: 02/26/2025 AST (Aspartate Aminotransferase) Lab Routine Primary Malignant Neoplasm Of Prostate (HCC) 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) Rising Prostate Specific Antigen Following Treatment For Malignant Cancer Of Prostate Expected: 05/29/2024, Expires: 02/26/2025 Bilirubin, Total Lab Routine Primary Malignant Neoplasm Of Prostate (HCC) 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) Rising Prostate Specific Antigen Following Treatment For Malignant Cancer Of Prostate Expected: 05/29/2024, Expires: 02/26/2025 Bilirubin, Direct Lab Routine Primary Malignant Neoplasm Of Prostate (HCC) 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) Rising Prostate Specific Antigen Following Treatment For Malignant Cancer Of Prostate Expected: 05/29/2024, Expires: 02/26/2025 Potassium Lab Routine Primary Malignant Neoplasm Of Prostate (HCC) 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) Rising Prostate Specific Antigen Following Treatment For Malignant Cancer Of Prostate Expected: 05/29/2024, Expires: 02/26/2025 Scheduled Referrals Name Type Priority Associated Diagnoses Orde r Schedule Urology office visit (clinic) General Outpatient Referral Routine Expected: 05/29/2024 (Approximate), Expires: 05/29/2025 documented as of this encounter Visit Diagnoses Diagnosis Primary Malignant Neoplasm Of Prostate (HCC)- Primary 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
--- OUTSIDE RECORDS SUMMARY | 2024-04-26 13:36 | XMS_ITS | Encounter Summary ---
Author Organization [facility] Address [address] [place] [address] Care Team Providers Care Geological Drafter Name Role Phone Elsewhere, Pcp Primary Care Provider Unavailabl e Reason for Visit * Reason Comments Injections Outpatient Infusion * Episode Based Medications (Routine) - Authorized Specialty Diagnoses / Procedures Referred By Contrush t Referred To Contact Diagnoses Secondary Malignant Neoplasm Bone (HCC) Primary Malignant Neoplasm Of Prostate (HCC) Procedures MA LEUPROLIDE ACETATE SUSPNSION Leuprolide Merlien Hess M.D. [address] [place] [phone] [facility] [address] [place] [address] Referral ID Status Reason Start Date Expiration Date V isits Requested Visits Authorized [id number] Authorized 12/24/2019 07/16/2024 99 99 Encounter Details Date Type Department Care Team (Late st Contact Info) Description 04/03/2024 9:30 AM CDT Infusion Department of Infusion Therapy in [place], [place] [address] [place] [phone] Donny Kelley M.B.B.S. [facility] [place] [phone] Primary Malignant Neoplasm Of Prostate (HCC) (Primary Dx); Secondary Malignant Neoplasm Bone (HCC) Social History Tobacco Use Types Packs/Day Years Used Date Smoking Tobacco: Former Cigarettes 0 07/25/1961 - 12/23/1969 Passive Smoke Exposure: Past Smokeless Tobacco: Never Comments:Used lightly ,stopp ed 50years ago Alcohol Use Standard Drinks/Week Comments Yes 2 (1 standard drink = 0.6 oz pur e alcohol) Negligable one beer/ week [facility] ams AGities Answer Date Recorded In the past 12 months has e Function [employer], gas, oil, or water [employer] threatened to shut off services in your [...] week 09/28/2022 How often do you attend [facility] or orthodoxy services? More than 4 times per year 09/28/2022 Do you belong to any clubs o r organizations such as jain groups, unions, fraternal or athletic groups, or [...] care, and heating? Not very hard 09/28/2022 [facility] of Occupat ional [facility] - Occupational Stress Questionnaire Answer Date Recorded [...] your living situation today? I have a [facility] place to live 11/18/2023 Education Answer Date Recorded What is the highest level of school you have completed or the highest degree you have received? Master's degree (e.g., MA, MS, Kedar, MEd, [employer], OLIVER) 10/01/2020 Sex and Gender Information Value [...] No 08/03/2022 documented as of this encounter Plan of Treatment Upcoming Encounters Date Type Department Care Team (Latest Contact Info) Description 05/13/2024 10:40 AM CDT Appointment Department of Pain Medicine in [place] [address] [place] [phone] Markel Avila M.D. [facility] [place] [phone] Discharge Disposition: Home or Self Care 06/03/2024 10:30 AM CRIME SCENE ANALYST Clinical Communication Virtual Review in [place], [place] 200 [place] [phone] 06/05/2024 10:00 AM CRIME SCENE ANALYST Lab Department of Infusion Therapy in [place], [place] [address] [place] [phone] Sayda Roberson P.A.-C., M.S. [address] [place] [phone] 06/05/2024 11:45 AM CRIME SCENE ANALYST Appointment Department of Radiology, [facility], in [place], [place] [address] [place] [phone] Sayda Roberson P.A.-C., M.S. [address] [place] [phone] 06/05/2024 2:45 PM CRIME SCENE ANALYST Appointment Department of Radiology, [facility], in [place], [place] [address] [place] [address] Sayda Roberson P.A.-C., M.S. [address] [place] [phone] 06/06/2024 10:00 AM CRIME SCENE ANALYST Office Visit Department of Urology in [place], [place] [address] [place] [address] Artemio Dover M.D. [address] [place] [phone] 06/26/2024 9:00 AM CRIME SCENE ANALYST Office Visit Department of Oncology in [address] [phone] Donny Kelley M.B.B.S. [address] [place] [phone] 06/26/2024 9:30 AM CRIME SCENE ANALYST Infusion Department of Infusion Therapy in [address] [phone] Donny Kelley M.B.B.S. [address] [place] [phone] documented as of this encounter Visit Diagnoses Diagnosis Primary Malignant Neoplasm Of Prostate (HCC)- Primary Secondary Malignant Neoplasm Bone (HCC) documented in this encounter Administered Medications Inactive Administered Medications - up to 3 most recent administrations Medication Order MAR Action Action Date Dose Rate Site leuprolide (3 month) injection 22.5 mg (Eligard 3 Month) 22.5 mg, subcutaneous, Once, On Mon04/03/24 at 1000, For 1 dose Given 04/03/2024 9:47 AM CDT 22.5 mg Right Lower Abdomen zoledronic blwk-[id number] IVPB 4 mg (Zometa) 4 mg, intravenous, at 400 mL/hr, Administer over 15 Minutes, Once, On Mon04/03/24 at 1000, For 1 dose, - Check serum creatinine prior to administration of zoledronic acid. Dose is based on creatinine clearance calculated by the Cockcroft-Gault equation. - If creatinine clearance is greater than 60 mL/min administer 4 mg dose. - If creatinine clearance is between 50 and 60 mL/min administer 3.5 mg dose. - If creatinine clearance is between 40 and 49 mL/min administer 3.3 mg dose. - If creatinine clearance is between 30 and 39 mL/min administer 3 mg dose. - HOLD if creatinine clearance is less than 30 mL/min and notify provider. - Pharmacist is authorized to adjust zoledronic acid dose based on creatinine clearance with every administration, as directed. New Bag 04/03/2024 9:54 AM CDT 4 mg 400 mL/hr documented in this encounter Care Teams Geological Drafter Relationship Specialty Start Date End Date Elsewhere, Pcp PCP - General Internal Medicine 06/27/22 documented as of this encounter
--- OUTSIDE RECORDS SUMMARY | 2024-04-26 13:36 | XMS_ITS | Encounter Summary ---
Author Organization [facility] Address [address] [place] [phone] Care Team Providers Care Return To Service Inspector Name Role Phone Elsewhere, Pcp Primary Care Provider Unavailabl e Reason for Visit * Reason Comments Follow-up follow up for failed spine caudal epidural steroid injection * Appointment Request (Routine) - Closed Specialty Diagnoses / Procedures Referred By Contac t Referred To Contact Pain Medicine Referral ID Status Reason Start Date Expiration Date Visits Re quested Visits Authorized [id number] Closed 01/29/2024 01/28/2025 1 1 Encounter Details Date Type Department Care Team (Latest Contact Info) Description 03/12/2024 8:00 AM CDT Office Visit Department of Pain Medicine in [place], [place] [address] [place] [address] Markel Avila M.D. [facility]5 [place] [phone] Radiculopathy Lumbar (Primary Dx); Pain Sacroiliac; Metastatic Cancer (HCC) Discharge Disposition: Home or Self Care Social History Tobacco Use Types Packs/Day Years Used Date Smoking Tobacco: Former Cigarettes 0 07/25/1961 - 12/23/1969 Passive Smoke Exposure: Past Smokeless Tobacco: Never Comments:Used lightly ,stopp ed 50years ago Alcohol Use Standard Drinks/Week Comments Yes 2 (1 standard drink = 0.6 oz pur e alcohol) Negligable one beer/ week [facility] Utilities Answer Date Recorded In the past 12 months has e [employer], gas, oil, or water [employer] threatened to shut off services in your [...] week 09/28/2022 How often do you attend [facility] or episcopalian services? More than 4 times per year 09/28/2022 Do you belong to any clubs o r organizations such as yazidi groups, unions, fraternal or athletic groups, or [...] care, and heating? Not very hard 09/28/2022 [facility] - Occupational Stress Questionnaire Answer Date Recorded [...] Master's degree (e.g., MA, MS, Kedar, MEd, LADIES SUIT OPERATOR, OLIVER) 10/01/2020 Sex and Gender Information Value [...] as of this encounter Progress Notes * Markel Avila M.D. - 03/12/2024 8:00 AM CDT Pain Medicine Progress Note SUBJECTIVE Chief Complaint/Indication For Visit Chief Complaint Patient presents with Follow-up follow up for failed spine caudal epidural steroid injection History of Presenting Illness Mr. Espinosa is a 72 y.o. male hx of stage IV prostate cancer w/ mets to bone + liver on androgen dep therapy, olaparib and L2-5 decompression + fusion. Ongoing radiation therapy @ 7th rib left and liver mets. Most recent eval with Onc revealed edema / inflammation in right glut silvana discovered on MRI. Sacroiliac injection performed that provided 1-2 weeks of pain relief (previously reported as1-2 days but done now thinks he experienced longer pain relief). We next tried caudal epidural to try to address radicular pain. This helped back pain more than radicular pain, but in hindsight was the most efficacious injection thus far. At last visit we agreed on SIJ RFA but Don decided against pursuing this. Status post caudal epidural with poor pain relief as well. Today with persistent axial lumbosacral pain that radiates out to the right buttock. OBJECTIVE Vitals: 03/12/24 0745 PainSc: 3 PainLoc: Back Comment: lower right back and hip Patient has full strength and sensation in bilateral upper and lower extremities. Focal tenderness at the sacral sulci in the right. Thecal leg raise and pelvic thrust positive. Lab Results Component Value Date PLT 181 01/10/2024 Lab Results Component Value Date HGB 10.1 (L) 01/10/2024 Lab Results Component Value Date WBC 3.9 01/10/2024 Imaging & Diagnostics Review: I personally reviewed MRI lumbar spine demonstrating patent but narrow L5 right nerve root exiting inferior to pedicle screw. 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 2 weeks of pain relief with IA SIJ injection. Previously initial moderate response to caudal, but on review of his personal pain log, he says that this was an incredibly efficacious procedure that provided prolonged pain relief. Repeat caudal was helpful for some axial pain but radiating buttock pain persists. Finally, Don will continue opioid rx via Oncology. Due to poor efficacy of procedures and addressing right buttock pain, I have asked mahnaz to considersacral lateral branch blocks on the right for SI joint dysfunction, spinal cord stimulation trial for post-laminectomy/fusion pain, Osteocool at the S1 vertebral body and consideration of sacroplasty. We could perform the sacral lateral branch blocks or spinal cord stimulation trial with in the painDepartment. Osteocool and sacroplasty would need to be done via Interventional Radiology. Plan: 1. We will reach out to IR consider during sacroplasty versus osteocool 2. Patient will research sacral lateral branch block right versus SCS trial. documented in this encounter Plan of Treatment Upcoming Encounters Date Type Department Care Team (Latest Contact Info) Description 05/13/2024 10:40 AM CDT Appointment Department of Pain Medicine in [address] [phone] Markel Avila M.D. [address] [place] [phone] Discharge Disposition: Home or Self Care 06/03/2024 10:30 AM DRIVER LICENSE EXAMINER Clinical Communication Virtual Review in [place], [place] [address] [place] [phone] 06/05/2024 10:00 AM DRIVER LICENSE EXAMINER Lab Department of Infusion Therapy in [place], [place] [address] [place] [phone] Sayda Roberson P.A.-C., M.S. [address] [place] [phone] 06/05/2024 11:45 AM DRIVER LICENSE EXAMINER Appointment Department of Radiology, [facility] in [place], [place] [address] [place] [phone] Sayda Roberson P.A.-C., M.S. [address] [place] [phone] 06/05/2024 2:45 PM DRIVER LICENSE EXAMINER Appointment Department of Radiology, [facility] in [place], [place] [address] [place] [address] Sayda Roberson P.A.-C., M.S. [address] [place] [phone] 06/06/2024 10:00 AM DRIVER LICENSE EXAMINER Office Visit Department of Urology in [place], [place] [address] [place] [address] Artemio Dover M.D. [address] [place] [phone] 06/26/2024 9:00 AM DRIVER LICENSE EXAMINER Office Visit Department of Oncology in [place], [place] [address] [place] [phone] Donny Kelley M.B.B.S. [address] [place] [phone] 06/26/2024 9:30 AM DRIVER LICENSE EXAMINER Infusion Department of Infusion Therapy in [place], [place] [address] [place] [phone] Donny Kelley M.B.B.S. [address] [place] [phone] documented as of this encounter Visit Diagnoses Diagnosis Radiculopathy Lumbar- Primary Pain Sacroiliac Metastatic Cancer (HCC) documented in this encounter Care Teams Return To Service Inspector Relationship Specialty Start Date End Date Elsewhere, Pcp PCP - General Internal Medicine 06/27/22 documented as of this encounter
--- OUTSIDE RECORDS SUMMARY | 2024-04-26 13:36 | XMS_ITS | Encounter Summary ---
Author Organization [facility] Address [address] [place] [id number] Care Team Providers Care Gut Snatcher Name Role Phone Elsewhere, Pcp Primary Care Provider Unavailabl e Reason for Visit * Reason Comments Labs Only * Episode Based Medications (Routine) - Authorized Specialty Diagnoses / Procedures Referred By Contac t Referred To Contact Diagnoses Primary Malignant Neoplasm Of Prostate (HCC) Secondary Malignant Neoplasm Bone (HCC) Procedures MT ZOLEDRONIC ACID 1MG Zoledronic Acid Donny Kelley M.B.B.S. [address] [place] [phone] [facility] [address] [place] [phone] Referral ID Status Reason Start Date Expiration Date V isits Requested Visits Authorized [id number] Authorized 11/03/2021 07/16/2024 99 99 Encounter Details Date Type Department Care Team (Late st Contact Info) Description 04/03/2024 8:30 AM CDT Lab Department of Infusion Therapy in [place], [place] [address] [place] [phone] Donny Kelley M.B.B.S. [address] [place] [phone] Secondary Malignant Neoplasm Bone (HCC) (Primary Dx); Primary Malignant Neoplasm Of Prostate (HCC); Secondary Malignant Neoplasm Liver (HCC); Anemia Chemotherapy Induced Social History Tobacco Use Types Packs/Day Years Used Date Smoking Tobacco: Former Cigarettes 0 07/25/1961 - 12/23/1969 Passive Smoke Exposure: Past Smokeless Tobacco: Never Comments:Used lightly ,stopp ed 50years ago Alcohol Use Standard Drinks/Week Comments Yes 2 (1 standard drink = 0.6 oz pur e alcohol) Negligable one beer/ week [facility] [employer] Answer Date Recorded In the past 12 months has [employer], [employer], oil, or water [employer] threatened to shut off services in your [...] week 09/28/2022 How often do you attend [facility] or zoroastrian services? More than 4 times per year 09/28/2022 Do you belong to any clubs o r organizations such as hinduism groups, unions, fraternal or athletic groups, or [...] care, and heating? Not very hard 09/28/2022 [facility] - Occupational Stress [...] your living situation today? I have a [facility] place to live 11/18/2023 Education Answer Date Recorded What is the highest level of school you have completed or the highest degree you have received? 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 [address] [place] [phone] Discharge Disposition: Home or Self Care 06/03/2024 10:30 AM TRAINING DEVELOPMENT DIRECTOR Clinical Communication Virtual Review in [place], [place] [address] [place] [phone] 06/05/2024 10:00 AM TRAINING DEVELOPMENT DIRECTOR Lab Department of Infusion Therapy in [place], [place] [address] [place] [phone] Sayda Roberson P.A.-C., M.S. [address] [place] [phone] 06/05/2024 11:45 AM TRAINING DEVELOPMENT DIRECTOR Appointment Department of Radiology, [facility], in [place], [place] [address] [place] [phone] Sayda Roberson P.A.-C., M.S. [address] [place] [phone] 06/05/2024 2:45 PM TRAINING DEVELOPMENT DIRECTOR Appointment Department of Radiology, [facility], in [place], [place] [address] [place] [phone] Sayda Roberson P.A.-C., M.S. [address] [place] [phone] 06/06/2024 10:00 AM TRAINING DEVELOPMENT DIRECTOR Office Visit Department of Urology in [place], [place] [address] [place] [phone] Artemio Dover M.D. [address] [place] [phone] 06/26/2024 9:00 AM TRAINING DEVELOPMENT DIRECTOR Office Visit Department of Oncology in [address] [phone] Donny Kelley, M.B.B.S. [address] [place] [phone] 06/26/2024 9:30 AM TRAINING DEVELOPMENT DIRECTOR Infusion Department of Infusion Therapy in [address] [phone] Donny Kelley, M.B.B.S. 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) Anemia Chemotherapy Induced CREATININE WITH EGFR, S/P Routine 04/03/2024 8:42 AM CDT Primary Malignant Neoplasm Of Prostate (HCC) Secondary Malignant Neoplasm Bone (HCC) CALCIUM, TOT, S/P Routine 04/03/2024 8:4 2 AM CDT Primary Malignant Neoplasm Of Prostate (HCC) Secondary Malignant Neoplasm Bone (HCC) documented in this encounter Results * PSA (Prostate-Specific Antigen), Diagnostic (04/03/2024 8:42 AM CDT) Prostate-Specific Ag <0.10 <=6.5 ng/mL 04/03/2024 9:24 AM CDT NPRG Comment: ----ADDITIONAL INFORMATION---- The testing method is an electrochemiluminescence assay manufactured by [employer] and performed on the Modular or Momo system. Values obtained with different assay methods or kits may be different and cannot be used interchangeably. Test results cannot be interpreted as absolute evidence for the presence or absence of malignant disease. Blood (Blood, Venous) 04/03/2024 8:42 AM CDT 04/03/2024 8:44 AM CDT Donny Mcgrath LAB BLOOD ADD-ON [facility] [address] [place] [address], [facility] NPRG [facility] [address] [place] [address] * (ABNORMAL) CBC with Differential, Blood (04/03/2024 8:42 AM CDT) Hemoglobin 10.5(L) 13.2 - 16.6 g/dL 04/03/2024 8:48 AM CDT NPRG Hematocrit 30.2(L) 38.3 - 48.6 % 04/03/2024 8:48 AM CDT NPRG Erythrocytes 3.04(L) 4.35 - 5.65 x10(12)/L 04/03/2024 8:48 AM CDT [facility] MCV 99.3(H) 78.2 - 97.9 fL 04/03/2024 8:48 AM CDT NPR[facility] RBC Distrib Width 12.7 11.8 - 14.5 % 04/03/2024 8:48 AM CDT NPR[facility] Platelet Count 208 135 - 317 x10(9)/L 04/03/2024 8:48 AM CDT [facility] Leukocytes 4.3 3.4 - 9.6 x10(9)/L 04/03/2024 8:48 AM CDT NPR[facility] Neutrophils 2.86 1.56 - 6.45 x10(9)/L 04/03/2024 8:48 AM CDT NPR[facility] Lymphocytes 0.95 0.95 - 3.07 x10(9)/L 04/03/2024 8:48 AM CDT NPR[facility] Monocytes 0.44 0.26 - 0.81 x10(9)/L 04/03/2024 8:48 AM CDT NPR[facility] Eosinophils 0.08 0.03 - 0.48 x10(9)/L 04/03/2024 8:48 AM CDT NPR[facility] Basophils <0.04 0.01 - 0.08 x10(9)/L 04/03/2024 8:48 AM CDT NPRG Blood (Blood, Venous) 04/03/2024 8:42 AM CDT 04/03/2024 8:44 AM CDT Donny Mcgrath LAB BLOOD ADD-ON [facility] [address] [place] [address], [facility] NPRG [facility] [address] [place] [address] * Calcium, Total (04/03/2024 8:42 AM CDT) Calcium, Total, P 9.4 8.8 - 10.2 mg/dL 04/03/2024 9:08 AM CDT NPRG Blood (Blood, Venous) 04/03/2024 8:42 AM CDT 04/03/2024 8:44 AM CDT Donny CastilloS. LAB BLOOD ADD-ON Performing Organization Address City/[facility]/ZIP Co de Phone Number [facility] [address] [place] [address], [facility] NPRG [place] [address] [address] [place] [address] * Creatinine with Estimated GFR (04/03/2024 8:42 AM CDT) Creatinine 1.14 0.74 - 1.35 mg/dL 04/03/2024 9:08 AM CDT NPRG Estimated GFR (eGFR) 67 >=60 mL/min/BSA 04/03/2024 9:08 AM CDT NPRG Comment: Estimated GFR calculated using the 2020 CKD_EPI creatinine equation. Blood (Blood, Venous) 04/03/2024 8:42 AM CDT 04/03/2024 8:44 AM CDT Donny Ruvalcaba.S. LAB BLOOD ADD-ON Performing Organization Address [facility] Co de Phone Number [facility] [address] [place] [address], [facility] NPRG [address] [phone] documented in this encounter Visit Diagnoses Diagnosis Secondary Malignant Neoplasm Bone (HCC)- Primary Primary Malignant Neoplasm Of Prostate (HCC) Secondary Malignant Neoplasm Liver (HCC) Anemia Chemotherapy Induced documented in this encounter Administered Medications Inactive Administered Medications - up to 3 most recent administrations Medication Order MAR Action Action Date Dose Rate Site sodium chloride 0.9 % injection 20 mL 20 mL, intra-catheter, As needed, line care, Starting on Mon04/03/24 at 0845, Post blood transfusion or post blood sampling. Given 04/03/2024 10:12 AM CDT 20 mL Given 04/03/2024 8:40 AM CDT 20 mL documented in this encounter Care Teams Gut Snatcher Relationship Specialty Start Date End Date Elsewhere, Pcp PCP - General Internal Medicine 06/27/22 documented as of this encounter
--- OUTSIDE RECORDS SUMMARY | 2024-04-26 13:36 | XMS_ITS | Referral Summary ---
Author Organization [facility] Address [address] [place] [address] Care Team Providers Care Leather Tooler Name Role Phone Elsewhere, Pcp Primary Care Provider Unavailabl e Source Comments Patient records contain information from all sites at [facility]. For routine questions regarding patient records, call [phone] during business hours, M-F 8:00 AM - 5:00 PM Central Time. Record requests for emergency care only can be directed to [phone] at any time.[facility] Encounters Date Type Department Care Team Description 04/03/2024 9:00 AM CDT Office Visit Department of Oncology in [address] [address] Donny Kelley M.B.B.S. Primary Malignant Neoplasm Of Prostate (HCC) (Primary Dx); Secondary Malignant Neoplasm Bone (HCC); Secondary Malignant Neoplasm Liver (HCC); Anemia Chemotherapy Induced 04/03/2024 8:30 AM CDT Lab Department of Infusion Therapy in [address] [phone] Donny Kelley M.B.B.S. Secondary Malignant Neoplasm Bone (HCC) (Primary Dx); Primary Malignant Neoplasm Of Prostate (HCC); Secondary Malignant Neoplasm Liver (HCC); Anemia Chemotherapy Induced 04/03/2024 9:30 AM CDT Infusion Department of Infusion Therapy in [place], [place] [address] [place] [address] Donny Kelley M.B.B.S. Primary Malignant Neoplasm Of Prostate (HCC) (Primary Dx); Secondary Malignant Neoplasm Bone (HCC) 03/29/2024 Clinical Communication Department of Pain Medicine in [address] [phone] Markel Avila M.D. 03/25/2024 Documentation Department of Pain Medicine in [address] [phone] Markel Avila M.D. 03/12/2024 8:00 AM CDT Office Visit Department of Pain Medicine in [address] [address] Markel Avila M.D. Radiculopathy Lumbar (Primary Dx); Pain Sacroiliac; Metastatic Cancer (HCC) Discharge Disposition: Home or Self Care 02/27/2024 10:30 AM CDT Office Visit Department of Urology in [place], [place] [address] [place] [phone] Artemio Dover M.D. Primary Malignant Neoplasm Of Prostate (HCC) (Primary Dx); Secondary Malignant Neoplasm Bone (HCC); Secondary Malignant Neoplasm Liver (HCC); Rising Prostate Specific Antigen Following Treatment For Malignant Cancer Of Prostate 02/26/2024 Clinical Communication Department of Infusion Therapy in [place], [place] [address] [place] [phone] Ly Meyer R.N. 02/26/2024 2:15 PM CDT Infusion Department of Infusion Therapy in [place], [place] [address] [place] [phone] Merline Hess M.D. Secondary Malignant Neoplasm Liver (HCC); Secondary Malignant Neoplasm Bone (HCC); Anemia Chemotherapy Induced; Primary Malignant Neoplasm Of Prostate (HCC) 02/26/2024 10:20 AM CDT Lab Department of Infusion Therapy in [address] [address] Lacy Dennis APRN, C.NSimeon., M.S.N. Secondary Malignant Neoplasm Bone (HCC) (Primary Dx); Primary Malignant Neoplasm Of Prostate (HCC); Secondary Malignant Neoplasm Liver (HCC); Rising Prostate Specific Antigen Following Treatment For Malignant Cancer Of Prostate 02/26/2024 10:20 AM CDT - 02/26/2024 11:59 PM CDT Hospital Encounter Department of Radiology, [facility] in [address] [phone] Lacy Dennis APRN, C.N.P., M.S.N. Primary Malignant Neoplasm Of Prostate (HCC); Secondary Malignant Neoplasm Bone (HCC); Secondary Malignant Neoplasm Liver (HCC); Rising Prostate Specific Antigen Following Treatment For Malignant Cancer Of Prostate Discharge Disposition: Home or Self Care 02/23/2024 9:00 AM CDT Clinical Communication Virtual Review in [address] [phone] Pre-visit Intake from Last 3 Months Allergies No known active allergies Medications Medication Sig Dispensed Refills Start Date End Date Status cholecalciferol (VITAMIN D3) 2,000 Unit capsule Take 2,000 Units by mouth daily. Active acetaminophen (TYLENOL) 500 mg tablet Take 1,000 mg by mouth as needed for pain, fever, mild pain or score 1-3 of 10, moderate pain or score 4-6 of 10, severe pain or score 7-10 of 10 or headaches. Active leuprolide, 3 month, (LUPRON) 22.5 mg injection Inject 22.5 mg intramuscularly every 3 (three) months. Every 3 month Active lisinopriL (PRINIVIL,ZESTRI L) 10 mg tablet Take 10 mg by mouth daily. 02/14/2020 Active ibuprofen (ADVIL,MOTRIN) 800 mg tablet Take 800 mg by mouth as needed for pain, fever, mild pain or score 1-3 of 10, moderate pain or score 4-6 of 10, severe pain or score 7-10 of 10 or headaches. 09/24/[address] Active [address] tablet Take 81 mg by mouth daily. 08/24/2018 Active oxyCODONE (ROXICODONE) 5 mg immediate release tabletIndication s:Chronic Pain/Nonacute Pain Take 1 tablet (5 mg total) by mouth every 4 (four) hours as needed for severe pain or score 7-10 of 10 Indication: Chronic Pain/Nonacute Pain. 180 tablet 09/11/2023 Active pantoprazole (Protonix) 40 mg EC tablet Take 1 tablet (40 mg total) by mouth every morning before breakfast. 90 tablet 3 01/10/2024 Active Hospital, Clinic, or Other Facility Administered Medication Ordered Dose Route Frequency Start Date End Date Status alteplase 1 mg/mL injection 2 mg (Cathflo Activase)Indications:Secondar y Malignant Neoplasm Liver (HCC) 2 mg cath As needed 02/26/2024 Active Active Problems Problem Noted Date Diagnosed Date Secondary Malignant Neoplasm Liver 06/28/2022 Radiation Therapy Personal History 08/31/2021 Rising Prostate Specific Ant igen Following Treatment For Malignant Cancer Of Prostate 08/17/2021 Anemia Chemotherapy Induced 11/10/2020 Primary Malignant Neoplasm Of Prostate 9 Cancer Staging:Clinical stage from 11/22/2018:Stage IVB(cT3a, cN0, cM1b, PSA: 13.5, Grade Group: 4) - Signed by Fredrick Singh M.D. on 12/12/2018 Secondary Malignant Neoplasm Bone 12/10/2018 Apnea Sleep Obstructive 05/31/2016 Hypertension 05/31/2016 Spinal Stenosis Lumbar Regio n Without Neurogenic Claudication 05/31/2016 Social History Tobacco Use Types Packs/Day Years Used Date Smoking Tobacco: Former Cigarettes 0 07/25/1961 - 12/23/1969 Passive Smoke Exposure: Past Smokeless Tobacco: Never Tobacco Cessation:Counseling Given: Not Answered Comments:Used lightly ,stopped 50years ago Alcohol Use Standard Drinks/Week Comments Yes 2 (1 standard drink = 0.6 oz pur e alcohol) Negligable one beer/ week [facility] Utilities Answer Date Recorded In the past 12 months has [employer], [employer], oil, or water [employer] threatened to shut off services in your [...] 09/28/2022 How often do you attend chur or temple services? More than 4 times per year 09/28/2022 Do you belong to any clubs o r organizations such as confucianist groups, unions, fraternal or athletic groups, or [...] care, and heating? Not very hard 09/28/2022 [facility] [place] [facility] Occupat ional Health - Occupational Stress [...] Date Recorded Dental: Regular Dentist Yes 10/02/19 Employment Answer Date Recorded Employment status Retired 11/18/2023 Housing Stability Answer Date Recorded What is your living situation today? I have a [facility] place to live 11/18/2023 Education Answer Date Recorded What is the highest level of school you have completed or the highest degree you have received? 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, [employer]) 10/01/2020 Sex and Gender Information Value Date Recorded Sex Assigned at Male 02/10/2020 2:14 PM CDT Gender Identity Male 01/30/2020 5:22 PM CDT Sexual Orientation Straight 02/27/2020 8: 34 PM CDT Last Filed Vital Signs Vital Sign Reading Time Taken Comments Blood Pressure 117/78 04/03/2024 8:56 AM CDT Pulse 71 04/03/2024 8:56 AM CDT Temperature 36.5 ??C (97.7 ??F) 04/03/2024 8:56 AM CD T Respiratory Rate 16 04/03/2024 8:56 AM CDT Oxygen Saturation 99% 04/03/2024 8:56 AM CDT Inhaled Oxygen Concentration - - Weight 98 kg (216 lb 0.8 oz) 04/03/2024 8:56 AM CDT Height 165 cm (5' 4.96) 07/19/2023 9:25 AM [facility] Body Mass Index 36 07/19/2023 9:25 AM [facility] Functional Status Functional Status Response Date of Assess ment Does this person have seriou s difficulty walking or climbing stairs? No 08/03/2022 Plan of Treatment Upcoming Encounters Date Type Department Care Team (Latest Contact Info) Description 05/13/2024 10:40 AM CDT Appointment Department of Pain Medicine in [address] [phone] Markel Avila M.D. [address] [place] [phone] Discharge Disposition: Home or Self Care 06/03/2024 10:30 AM [facility] Clinical Communication Virtual Review in [place], [place] 200 [place] [phone] 06/05/2024 10:00 AM [facility] Lab Department of Infusion Therapy in [address] [phone] Sayda Roberson P.A.-C., M.S. [address] [place] [phone] 06/05/2024 11:45 AM [facility] Appointment Department of Radiology, [facility], in [place], [place] [address] [place] [phone] Sayda Roberson P.A.-C., M.S. [address] [place] [phone] 06/05/2024 2:45 PM [facility] Appointment Department of Radiology, [facility], in [place], [place] [address] [place] [phone] Sayda Roberson P.A.-C., M.S. [address] [place] [address] 06/06/2024 10:00 AM [facility] Office Visit Department of Urology in [place], [place] [address] [place] [address] Artemio Dover M.D. [address] [place] [phone] 06/26/2024 9:00 AM [facility] Office Visit Department of Oncology in [place] [address] [place] [address] Donny Kelley, M.B.B.S. [address] [place] [phone] 06/26/2024 9:30 AM [facility] Infusion Department of Infusion Therapy in [address] [phone] Donny Kelley M.B.B.S. [address] [place] [phone] Medical Devices Implanted Type Area Clerk Telegraph Service Device Identifier Shelf Expiration Date Model / Serial / Lot Prt Cath Infus Mri Ti 8f - [id number] Implanted:Qt y: 1 on 01/21/2020 by Cruz Garza M.D. at [facility] Implantable Port Right: Chest C.R.Bard 10/14/2022 [id number] / / [id number] Mesh Or Patch Mesh or Patch Anterior: Abdomen Description:Hernia repair me sh. Spine Implant Spine Implant Midline: Spine Lumbar Description:Spinal fusion, s everal screws. Procedures Procedure Name Priority Date/Time Associated Diagnosis Comments PROSTATE-SPECIFIC AG (PSA) DIAGNOSTIC, S Routine 04/03/2024 8:42 AM CDT Primary Malignant Neoplasm Of Prostate (HCC) 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) Anemia Chemotherapy Induced CBC WITH DIFFERENTIAL, B Routine 04/03/2024 8:42 AM CDT Primary Malignant Neoplasm Of Prostate (HCC) 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) Anemia Chemotherapy Induced CALCIUM, TOT, S/P Routine 04/03/2024 8:4 2 AM CDT Primary Malignant Neoplasm Of Prostate (HCC) Secondary Malignant Neoplasm Bone (HCC) CREATININE WITH EGFR, S/P Routine 04/03/2024 8:42 AM CDT Primary Malignant Neoplasm Of Prostate (HCC) Secondary Malignant Neoplasm Bone (HCC) PET CT SKULL TO THIGH PSMA RAD - Routine (most inpatients and all outpatients) 02/26/2024 12:36 PM CDT Primary Malignant Neoplasm Of Prostate (HCC) 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) Rising Prostate Specific Antigen Following Treatment For Malignant Cancer Of Prostate TESTOSTERONE, TOTAL BY MASS SPECROMETRY, S Routine 02/26/2024 10:15 AM CDT Primary Malignant Neoplasm Of Prostate (HCC) 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) Rising Prostate Specific Antigen Following Treatment For Malignant Cancer Of Prostate PROSTATE-SPECIFIC AG (PSA) DIAGNOSTIC, S Routine 02/26/2024 10:15 AM CDT Primary Malignant Neoplasm Of Prostate (HCC) 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) Rising Prostate Specific Antigen Following Treatment For Malignant Cancer Of Prostate BILIRUBIN DIRECT, S/P Routine 02/26/2024 10:15 AM CDT Primary Malignant Neoplasm Of Prostate (HCC) 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) Rising Prostate Specific Antigen Following Treatment For Malignant Cancer Of Prostate BILIRUBIN, TOT, S/P Routine 02/26/2024 10:15 AM CDT Primary Malignant Neoplasm Of Prostate (HCC) 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) Rising Prostate Specific Antigen Following Treatment For Malignant Cancer Of Prostate ASPARTATE AMINOTRANSFERASE (AST), S/P Routine 02/26/2024 10:15 AM CDT Primary Malignant Neoplasm Of Prostate (HCC) 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) Rising Prostate Specific Antigen Following Treatment For Malignant Cancer Of Prostate ALANINE AMINOTRANSFERASE (ALT), S/P Routine 02/26/2024 10:15 AM CDT Primary Malignant Neoplasm Of Prostate (HCC) 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) Rising Prostate Specific Antigen Following Treatment For Malignant Cancer Of Prostate ALKALINE PHOSPHATASE, S/P Routine 02/26/2024 10:15 AM CDT Primary Malignant Neoplasm Of Prostate (HCC) 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) Rising Prostate Specific Antigen Following Treatment For Malignant Cancer Of Prostate POTASSIUM, S/P Routine 11/22/2023 2:23 PM CDT Primary Malignant Neoplasm Of Prostate (HCC) 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) Rising Prostate Specific Antigen Following Treatment For Malignant Cancer Of Prostate CT ABDOMEN WITH IV CONTRAST RAD - Routine (most inpatients and all outpatients) 05/23/2023 3:49 PM [facility] Primary Malignant Neoplasm Of Prostate (HCC) 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) Rising Prostate Specific Antigen Following Treatment For Malignant Cancer Of Prostate COMPREHENSIVE METABOLIC PANEL, S/P Routine 05/01/2023 7:54 AM CDT Primary Malignant Neoplasm Of Prostate (HCC) 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) from Last 3 Months or Most Recently Relevant to Health Maintenance Results * (ABNORMAL) CBC with Differential, Blood (04/03/2024 [...] AM CDT Donny Mcgrath LAB BLOOD ADD-ON [facility] [address] [place] [phone], [facility] NPRG [facility] [address] [place] [address] * PSA (Prostate-Specific Antigen), Diagnostic (04/03/2024 8:42 AM CDT) Only the most recent of2 resultswithin the time period is included. Prostate-Specific Ag <0.10 <=6.5 ng/mL 04/03/2024 9:24 [...] Ruvalcaba.S. LAB BLOOD ADD-ON Performing Organization Address City/[facility]/ZIP Co de Phone Number FORMERLY NAMED [facility] [address] [place] [id number], [facility] NPRG [address] [address] * Creatinine with Estimated GFR (04/03/2024 8:42 AM CDT) Creatinine 1.14 0.74 - 1.35 mg/dL 04/03/2024 9:08 AM CDT NPRG Estimated GFR (eGFR) 67 >=60 mL/min/BSA 04/03/2024 9:08 AM CDT NPRG Comment: Estimated GFR calculated using the 2020 CKD_EPI creatinine equation. Blood (Blood, Venous) 04/03/2024 8:42 AM CDT 04/03/2024 8:44 AM CDT Donny LagunaB.S. LAB BLOOD ADD-ON Performing Organization Address City/[facility]/ZIP Co de Phone Number FORMERLY NAMED [facility] [address] [place] [address], [facility] NPRG [address] [address] * Calcium, Total (04/03/2024 8:42 AM CDT) Calcium, Total, P 9.4 8.8 - 10.2 mg/dL 04/03/2024 9:08 AM CDT NPRG Blood (Blood, Venous) 04/03/2024 8:42 AM CDT 04/03/2024 8:44 AM CDT Donny Mcgrath LAB BLOOD ADD-ON [facility] [address] [place] [address], [facility] NPRG [facility] [address] [place] [address] * PET CT Skull to Thigh PSMA (02/26/2024 12:36 PM CDT) Anatomical Region Laterality Modality Body, Nuclear Medicine PET R ST LOS, PET ARZ LOS, Nuclear Medicine PET FLA LOS, Nuclear Medicine N/A Positron Emission Tomography (PET), Positron Emission Tomography (PET) Impressions 02/26/2024 1:22 PM CDT No significant change since PSMA PET/CT 08/25/2023. No convincing evidence of new or progressing metastatic disease. miPSMA Expression Score: 0 Narrative 02/26/2024 1:22 PM CDT EXAM: ??PET CT SKULL TO THIGH PSMA RADIOPHARMACEUTICAL/MEDS: PSMA: intravenous gallium Ga 68 gozetotide injection (Ga-68 Illuccix/Locametz),5.22 millicurie TECHNIQUE: ??PSMA-targeted PET/CT scan was performed from the vertex through the upper thighs with low dose, non-contrast, free-breathing CT images for attenuation correction and anatomic localization (AC/AL), with imaging beginning at approximately 60 minutes after radiotracer injection. ? COMPARISON: ??Multiple relevant prior exams including the most recent choline PET/CT from 11/22/[address] 08/25/2023. INDICATION: ??Metastatic prostate cancer ([place] 4+4), restaging. Status post Y90 therapy to a liver metastasis and radiation therapy for metastatic rib, spine, and pelvis lesions. Pluvicto treatment completed in March 2023 (x6 cycles). Interval leuprolide therapy. Subsequent treatment strategy. PSA: Undetectable since 11/22/2022. The patient reports no recent vaccinations. FINDINGS: PROSTATE: No suspicious focal PSMA uptake in the prostate gland. Stable mild patchy uptake, similar to PSMA PET CT 08/25/2023. LYMPH NODES: No suspicious PSMA avid lymphadenopathy. OSSEOUS DISEASE: No suspicious focal osseous PSMA uptake. Multiple additional PSMA nonavid sclerotic lesions throughout the axial and appendicular skeleton, consistent with previously treated metastases. OTHER METASTATIC DISEASE: None. Stable mild linear PSMA uptake along the margins of the previously treated hepatic metastasis (PET image 181), likely secondary to embolization related to perfusional changes. Additional findings on the noncontrast low-dose CT: No significant change since PET/CT of 11/22/2023. Right-sided Port-A-Cath tip in the superior cavoatrial junction. Mild coronary calcifications. Colonic diverticula. Right-sided fat-containing inguinal hernia. Postoperative changes in the lumbar spine. Procedure Note Tex Prado M.D. - 02/26/2024 EXAM: PET CT SKULL TO THIGH PSMA RADIOPHARMACEUTICAL/MEDS: PSMA: intravenous gallium Ga 68 gozetotide injection (Ga-68 Illuccix/Locametz),5.22millicurie TECHNIQUE: PSMA-targeted PET/CT scan was performed from the vertexthrough the upper thighs with low dose, non-contrast, free-breathing CTimages for attenuation correction and anatomic localization (AC/AL), withimaging beginning at approximately 60 minutes after radiotracer injection. COMPARISON: Multiple relevant prior exams including the most recentcholine PET/CT from 11/22/[address] 08/25/2023. INDICATION: Metastatic prostate cancer ([place] 4+4), restaging. Statuspost Y90 therapy to a liver metastasis and radiation therapy formetastatic rib, spine, and pelvis lesions. Pluvicto treatment completed inS2022 (x6 cycles). Interval leuprolide therapy. Subsequent treatment strategy. PSA: Undetectable since11/22/2022. The patient reports no recent vaccinations. FINDINGS: PROSTATE: No suspicious focal PSMA uptake in the prostate gland. Stablemild patchy uptake, similar to PSMA PET CT 08/25/2023. LYMPH NODES: No suspicious PSMA avid lymphadenopathy. OSSEOUS DISEASE: No suspicious focal osseous PSMA uptake. Multipleadditional PSMA nonavid sclerotic lesions throughout the axial andappendicular skeleton, consistent with previously treated metastases. OTHER METASTATIC DISEASE: None. Stable mild linear PSMA uptake along themargins of the previously treated hepatic metastasis (PET image 181),likely secondary to embolization related to perfusional changes. Additional findings on the noncontrast low-dose CT: No significant changesince PET/CT of 11/22/2023. Right-sided Port-A-Cath tip in the superiorcavoatrial junction. Mild coronary calcifications. Colonic diverticula.Right-sided fat-containing inguinal hernia. Postoperative changes in the lumbar spine. IMPRESSION: No significant change since PSMA PET/CT 08/25/2023. No convincing evidenceof new or progressing metastatic disease. miPSMA Expression Score: 0 More Hook APRNNSimeon., M.S.N . IMG NM PROCEDURES * ALT (Alanine Aminotransferase) (02/26/2024 10:15 AM CDT) Alanine Aminotransferase (ALT), S 20 7 - 55 U/L 02/26/2024 11:51 AM CDT DTL Blood (Blood, Venous) 02/26/2024 10:15 AM CDT 02/26/2024 10:51 AM CDT More Hook APRNNSimeon., M.S.N . LAB BLOOD ADD-ON [facility] [address] [place] [address], [facility] [address] [place] [address] * AST (Aspartate Aminotransferase) (02/26/2024 10:15 AM CDT) Aspartate Aminotransferase (AST), S 24 8 - 48 U/L 02/26/2024 11:51 AM CDT DTL Blood (Blood, Venous) 02/26/2024 10:15 AM CDT 02/26/2024 10:51 AM CDT Lacy Dennis APRN, C.N.P., M.S.N . LAB BLOOD ADD-ON [facility] [address] [place] [address], [facility] [address] [place] [address] * (ABNORMAL) Testosterone, Total by Mass Spectrometry, Serum (02/26/2024 10:15 AM CDT) Testosterone, Total by Mass Spectrometry, Serum <7.0(L) 240 - 950 ng/dL 02/27/2024 10:30 AM CDT [facility] Comment: ----ADDITIONAL INFORMATION---- Testing performed by Liquid Chromatography-Tandem Mass Spectrometry (LC-MS/MS). This test was developed and its performance characteristics determined by [facility] in a manner consistent with CLIA requirements. This test has not been cleared or approved by the U.S. Food and Drug Administration. Blood (Blood, Venous) 02/26/2024 10:15 AM CDT 02/26/2024 1:23 PM CDT Lacy Dennis APRN, C.N.P., M.S.N . LAB BLOOD NON ADD-ON Performing Organization Address City/[facility]/ZIP Co de Phone Number [facility] [place] [address] [place] [address] [facility] [address] [place] [address] [place] [address] * Alkaline Phosphatase (02/26/2024 10:15 AM CDT) Alkaline Phosphatase, S 48 40 - 129 U/L 02/26/2024 11:51 AM CDT DT Blood (Blood, Venous) 02/26/2024 10:15 AM CDT 02/26/2024 10:51 AM CDT Lacy Dennis APRN, C.N.P., M.S.N . LAB BLOOD ADD-ON [facility] [address] [place] [address] * Bilirubin, Direct (02/26/2024 10:15 AM CDT) Bilirubin, Direct, S <0.2 0.0 - 0.3 mg/dL 02/26/2024 11:51 AM CDT DTL Blood (Blood, Venous) 02/26/2024 10:15 AM CDT 02/26/2024 10:51 AM CDT Lacy Dennis APRN, C.N.P., M.S.N . LAB BLOOD ADD-ON Performing Organization Address City/[facility]/ZIP Co de Phone Number [facility] [address] 200 [place] [address] * Bilirubin, Total (02/26/2024 10:15 AM CDT) Bilirubin, Total, S 0.3 0.0 - 1.2 mg/dL 02/26/2024 11:51 AM CDT DTL Blood (Blood, Venous) 02/26/2024 10:15 AM CDT 02/26/2024 10:51 AM CDT Lacy Dennis APRN, C.N.P., M.S.N . LAB BLOOD ADD-ON [facility] 200 [place] [address], [facility] [address] [place] [address] * Potassium (11/22/2023 2:23 PM CDT) Potassium, S 4.5 3.6 - 5.2 mmol/L 11/22/2023 3:24 PM CDT DTL Blood (Blood, Venous) 11/22/2023 2:23 PM CDT 11/22/2023 2:53 PM CDT Sayda Cih Da Acosta M.S. LAB BLOO D ADD-ON [facility] [address] [place] [address], [facility] DTL [facility] [address] [place] [address] * CT Abdomen with IV Contrast (05/23/2023 3:49 PM [facility]) Anatomical Region Laterality Modality Abdomen, Abdominal RST LOS, Abdominal ARZ LOS, Abdominal FLA LOS N/A Computed Tomography, Comput ed Tomography 05/23/2023 3:50 PM [facility] Impressions 05/23/2023 3:55 PM [facility] Treated liver lesion is unchanged in size since 02/09/2023. No new liver lesion. Narrative 05/23/2023 3:55 PM [facility] EXAM: ??CT ABDOMEN WITH IV CONTRAST COMPARISON: ??05/23/2023 choline PET/CT, 02/09/2023 MRI FINDINGS: ??Patient has undergone prior Y 90 radio embolization of a right anterior liver metastasis. The lesion measures 1.2 cm in this exam from 4 cm on the pretreatment images dated 06/30/2022. The lesion is not appreciably changed in size or imaging characteristics since the 02/09/2023 MRI. No new liver lesion. Spleen is normal in size. Fatty infiltration of the pancreas. Negative adrenal glands. Kidneys enhance symmetrically. No hydronephrosis. Aortoiliac atheromatous disease. No lymphadenopathy. Partially visualized postoperative changes lumbar spine. Sclerotic osseous metastases throughout the visualized skeleton are not appreciably changed. Procedure Note Mario Alberto Garcia M.D. - 05/23/2023 EXAM: CT ABDOMEN WITH IV CONTRAST COMPARISON: 05/23/2023 choline PET/CT, 02/09/2023 MRI FINDINGS: Patient has undergone prior Y 90 radio embolization of a rightanterior liver metastasis. The lesion measures 1.2 cm in this exam from 4cm on the pretreatment images dated 06/30/2022. The lesion is notappreciably changed in size or imaging characteristics since the 02/09/2023 MRI. No new liver lesion. Spleen is normal in size. Fatty infiltration of the pancreas. Negativeadrenal glands. Kidneys enhance symmetrically. No hydronephrosis.Aortoiliac atheromatous disease. No lymphadenopathy. Partially visualized postoperative changes lumbar spine. Sclerotic osseousmetastases throughout the visualized skeleton are not appreciablychanged. IMPRESSION: Treated liver lesion is unchanged in size since 02/09/2023. No new liverlesion. Angie Wheeler APRN C.N.P., M.S.N. IM G CT PROCEDURES * Comprehensive Metabolic Panel (05/01/2023 7:54 AM CDT) Potassium, P 4.4 3.6 - 5.2 mmol/L 05/01/2023 8:29 AM CDT NPRG Sodium, P 136 135 - 145 mmol/L 05/01/2023 8:29 AM CDT NPRG Chloride, P 101 98 - 107 mmol/L 05/01/2023 8:29 AM CDT NPRG Bicarbonate, P 23 22 - 29 mmol/L 05/01/2023 8:29 AM CDT NPRG Anion Gap, P 12 7 - 15 05/01/2023 8:29 AM CDT NPRG BUN (Blood Urea Nitrogen), P 19 8 - 24 mg/dL 05/01/2023 8:29 AM CDT NPRG Creatinine 0.97 0.74 - 1.35 mg/dL 05/01/2023 8:29 AM CDT NPRG Estimated GFR (eGFR) 82 >=60 mL/min/BS A 05/01/2023 8:29 AM CDT NPRG Comment: Estimated GFR calculated using the 2020 CKD_EPI creatinine equation. Calcium, Total, P 9.0 8.8 - 10.2 mg/dL 05/01/2023 8:29 AM CDT NPRG Glucose, P 97 70 - 140 mg/dL 05/01/2023 8:29 AM CDT NPRG Protein, Total, P 6.8 6.3 - 7.9 g/dL 05/01/2023 8:29 AM CDT NPRG Albumin, P 4.4 3.5 - 5.0 g/dL 05/01/2023 8:29 AM CDT NPRG Aspartate Aminotransferase (AST), P 24 8 - 48 U/L 05/01/2023 8:29 AM CDT NPRG Alkaline Phosphatase, P 54 40 - 129 U/L 05/01/2023 8:29 AM CDT NPRG Alanine Aminotransferase (ALT), P 20 7 - 55 U/L 05/01/2023 8:29 AM CDT NPRG Bilirubin, Total, P 0.3 0.0 - 1.2 mg/dL 05/01/2023 8:29 AM CDT NPRG Blood (Blood, Venous) 05/01/2023 7:54 AM CDT 05/01/2023 8:04 AM CDT Donny CastilloSBrad LAB BLOOD ADD-ON [facility] [address] [place] [address], [facility] NPRG [facility] [address] [place] [address] from Last 3 Months or Most Recently Relevant to Health Maintenance Advance Directives For more information, please contact: [phone] Documents on File Type Date Recorded 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
--- OUTSIDE RECORDS SUMMARY | 2024-04-26 13:36 | XMS_ITS | Encounter Summary ---
Author Organization [facility] Address [address] [place] [address] Care Team Providers Care Sales Hunter Name Role Phone Elsewhere, Pcp Primary Care Provider Unavailabl e Reason for Visit * Reason Comments Follow-up Prostate cancer * Outpatient (Routine) - Closed Specialty Diagnoses / Procedures Referred By Alejandro almaraz Referred To Contact Oncology Donny Kelley M.B.B.S. [address] [place] [address] [facility] Region Referral ID Status Reason Start Date Expiration Date Visits Re quested Visits Authorized [id number] Closed 01/10/2024 07/11/2025 1 1 Encounter Details Date Type Department Care Team ([facility] st Contact Info) Description 04/03/2024 9:00 AM CDT Office Visit Department of Oncology in [place], [place] [address] [place] [phone] Donny Kelley M.B.B.S. [address] [place] [address] Primary Malignant Neoplasm Of Prostate (HCC) (Primary [...] pur e alcohol) Negligable one beer/ week [facility] Eat Localities Answer Date Recorded In the past 12 months has e Liquid Spins, gas, oil, or water [employer] threatened to shut off services in your [...] often do you attend chur ch or caodaism services? More than 4 times per year 09/28/2022 Do you belong to any clubs o r organizations such as zoroastrianism groups, unions, fraternal or athletic groups, or [...] care, and heating? Not very hard 09/28/2022 [facility] - [...] Answer Date Recorded Dental: Regular Dentist Yes 03/18/20 21 Employment Answer Date Recorded Employment status Retired 11/18/2023 Housing Stability Answer Date Recorded What is your living situation today? I have a [facility] place to live 11/18/2023 Education Answer Date Recorded What is the highest level of school you have completed or the highest degree you have received? 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 No 08/03/2022 documented as of this encounter Patient Instructions * Patient Instructions* Donny Kelley M.B.B.S. - 04/03/2024 9:00 AM CDT He is presently scheduled for a follow-up with Urology and labs along with imaging on 06/05/2024. He will receive leuprolide acetate today on 04/03/2024. He will subsequently receive the next dose of leuprolide acetate in June of 2024. After receiving 18 doses of zoledronic acid (Zometa), interval of zoledronic acid (Zometa) has beenincreased to every 6 months. He received last dose of Zometa (zoledronic acid) today on 10/18/2023 and although he is due for the next dose in end March of 2024, we will go ahead and give the Zometa (zoledronic acid) today on 04/03/2024, so as to streamline the next dose with leuprolide acetate in6 months time. He will continue with vitamin-D supplementation 2000 units daily. We will plan to see him back in 3 months time, for continuation of leuprolide acetate. Since, labs are being done by Urology at [facility], we will only do a CBC and PSA in 2023. In view of his anemia, an anemia workup was done on 05/01/2023. Soluble transferrin receptor MMA, homocystine, and vitamin B6 (PLP), were all normal, thus ruling out nutritional causes for anemia. Inall likelihood anemia is due to the malignancy itself and the treatment received for it. Presently, hemoglobin has always been above 10. We did mentioned to him, that if the hemoglobin tends to run < 10, we may need to do a bone marrow aspiration and biopsy. Reference to the pain lower right back, he is being managed by pain medicine which we advised him to continue follow ups with them. He will continue port flushes every 4-6 weeks. 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 Subsequently olaparib was held on 08/26/2022 prior to initiating Pluvicto treatment. However, while he was on olaparib, he did develop metastatic disease requiring additional radiation therapy and Pluvicto treatment. Hence, we reviewed the role of PARP inhibitors including other options like rucaparib, niraparib, and talazoparib. However based on clinical trials, all of these drugs worked better in patients with BRCA1 and BRCA2 mutations than the other mutations. However trying out another PARP inhibitor may also be an option. Reference to his heartburn, he has been better with pantoprazole 40 mg once a day. Hence we advisedhim to continue the same. With reference to oxycodone, he does follow-up with pain medicine and has received steroids for radicular pain, with which he is better. With reference to opioids, as long as his requirement is minimal, we could give him a prescription. However if he needs to be on chronic opioids, we would then defer to pain medicine. Don was encouraged to keep us informed in case he develops any new symptomatology in the intervening period. documented in this encounter Progress Notes * Donny Kelley M.B.B.S. - 04/03/2024 9:00 AM CDT SUBJECTIVE PRIMARY CARE PHYSICIAN ELSEWHERE, PCP LOCAL ONCOLOGIST Maricarmen Tucker. 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 CHIEF COMPLAINT/REASON FOR VISIT Carlos Espinosa (who would like to be called Don) is a 73 y.o. 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 08/21/2018 Other The patient was seen for his annual physical examination and noted that he had difficulty maintaining an erection over the last several months. He was prescribed sildenafil. Prostate examination at that time was normal. PSA was 6.55 ng/mL. 10/21/2018 Other The patient had an episode of hermatospermia. He also developed excruciating back pain that became debilitating. 11/02/2018 Other The patient presented to Dr. Cotter with the above complaints. Prostate examination was normal. PSA was 13.50 ng/mL (possibly drawn after OLU). The patient was referred to Dr. Murali Viveros for additional workup. 11/05/2018 Other Urology consultation with Dr. Viveros where physical examination revealed a 50 g prostate with a 5 mm nodule on the right mid gland. Recommended proceeding with a prostate MRI. Will need a biopsy if asuspicious lesion is seen on the MRI. 11/09/2018 Critical Imaging MRI of the prostate demonstrated a prostate volume of 72.6 cc. There was a poorly defined T2 hypointense mass in the peripheral zone, 7-8 o'clock position, that measured 2.1 x 2.2 cm. There was suspected extraprostatic extension. The mass was seen 2.7 cm from the apex, 3.2 cm from the base, and 1.7cm from the midline. Additional foci of T2 shortening within the peripheral zone. PI-RADS 5. There were areas of marrow replacement within the sacrum and right iliac bone. Similar findings were seen at the posterior column of the left acetabulum. The largest lesion in the sacrum measured 8.0 cm. 11/22/2018 Biopsy/Pathology UroNav biopsy of the prostate was performed by Dr. Viveros. Pathology of the left prostate demonstrated adenocarcinoma of the prostate, Martin score 3+3=6, discontinuously involving 5-70% of the length of 3 cores, perineural invasion not seen. Pathology of the right prostate demonstrated adenocarcinoma the prostate, [place] score 4+4=8, involving 50-90% of the length of the cores, perineural invasion present. Pathology of lesion 1 demonstrated adenocarcinoma of the prostate, Martin score 4+4=8, involving 90% of the length of the cores, perineural invasion present. 11/23/2018 Other Nuclear medicine whole-body bone scan demonstrated multiple focal areas of abnormally increased uptake suspicious for skeletal metastases. Areas of involvement include bilateral ribs, several levels in the thoracic and lumbar spine, in the mid and right sacrum, and in the pelvis bilaterally. I alsosee an area of increased uptake in the right foot. 11/28/2018 - Biological/Targeted/Hormone Therapy 11/28/2018: He was started on bicalutamide 50 mg daily. Casodex was stopped on January 14, [address] Swenson. 12/04/2018: He received a leuprolide 22.5 mg injection at [facility]. 12/05/2018: He was initiated on zoledronic acid. This was held on February 11, [address] Clements. 01/01/2019: He was initiated on abiraterone and prednisone. 03/05/2019, 06/05/2019, 09/02/2019: He received a leuprolide 22.5 mg injection at [facility]. 12/02/2019, 03/03/2020, 05/26/2020, 08/18/2020, 10/21/2020, 03/08/2021, 05/31/2021, 08/23/2021, 11/15/2021, 02/21/2022, 05/16/2022, 08/15/2022, 11/07/2022, 02/01/2023, 05/01/2023, 07/26/2023, 10/18/2023, 01/10/2024, 04/03/2024: Leuprolide acetate 22.5 mg injection 11/30/2018 Other Medical Oncology consultation with Dr. Merline Hess. She ordered a MRI of the thoracic and lumbar spine and repeat MRI of the pelvis, consider choline PET scan. Referral to Radiation Oncology for evaluation for palliative radiation for pain. Follow-up appointment with Dr. Viveros who discussed starting leuprolide the following week. 12/05/2018 Other MRI of the thoracic spine demonstrated vertebral osseous metastatic disease noted posteriorly on the right at T9 with pedicle involvement and central and to the left at T12 and L1 with left L1 pedicle involvement. No extraosseous tumor. No central stenosis or cord compression and no enhancing intradural or intramedullary metastasis. Metastatic disease involved left posterior T7 rib in likely alsoposterior left T6 rib. No spinal canal tumor and no central stenosis or cord impingement. No pathologic compression fractures. MRI of the lumbar spine demonstrated superior compression fracture of S1with metastatic involvement of S1 and S2, posterior [...] posterior lateral peripheral zone. No visible pelvic lymphadenopathy 12/14/2018 - 12/20/2018 Radiation Therapy Patient treated with radiotherapy to the acetabular regions and sacrum to a dose of 2000 cGy in 5 fractions to both areas. He also was treated to the intermediate cuneiform bone of the right foot to a dose of 2000 cGy in 5 fractions. 01/02/2019 Other 01/02/2019, 01/14/2019, 02/11/2019, 03/11/2019, 04/04/2019, 05/01/2019, 05/29/2019, 07/01/2019, 07/31/2019, 09/02/2019, 11/29/2019, 12/23/2019: PSA at 4.86, 1.84, 0.51, 0.11, < 0.06, < 0.06, < 0.06, < 0.06, < 0.06, < 0.06, 0.29, 0.40. 05/08/2019 Critical Imaging C-11 Choline PET/CT scan demonstrated increased choline uptake within the prostate bed and multiplebones consistent with involvement by prostate carcinoma. No evidence of teodora metastasis. 12/23/2019 Critical Imaging MRI of the thoracic spine demonstrated enlargement of the marrow replacing and enhancing metastasisin the T9 vertebral body that involved the intervertebral body and right pedicle. New marrow replacing enhancing lesion in the T10 vertebral body involving the posterior aspect of the vertebral body,left pedicle, lamina, bilateral pars interarticulars, and spinous process. There was abnormal enhancement of the dorsal epidural space measuring approximately 3 mm x 5.8 cm from the T9-T11 spinous processes. There was minimal effacement of the thecal sac. There was also paraspinal soft tissue extension along the left transverse process. New marrow replacing lesion in the T11 posterior aspect of vertebral body, pedicle, and superior articular process. Enlargement of marrow replacing enhancing lesion involving the majority of the T12 vertebral body. No definite pedicle involvement. Enlargement of marrow replacing enhancing lesion in the L1 vertebral body. 12/26/2019 - 01/01/2020 Radiation Therapy Patient received palliative radiotherapy to T8 through L2 spine to a total dose of 2000 cGy in 5 fractions. 01/07/2020 - Biological/Targeted/Hormone Therapy 01/07/2020, 02/11/2020, 03/24/2020, 05/05/2020, 06/16/2020, 07/28/2020, 09/09/2020, 11/10/2020, 03/08/2021, 05/31/2021, 08/23/2021, 10/01/2021, 11/15/2021, 02/21/2022, 05/16/2022, 07/27/2022, 11/07/2022, 02/01/2023, 05/01/2023, 10/18/2023, 04/03/2024: Zoledronic acid, to decrease skeletal related events in patients withmetastatic cancer to the bones initially monthly, subsequently every 3 months and thereafter every 6 months. 01/10/2020 Critical Imaging C11 choline PET/CT scan demonstrated a new focus of increased choline activity within the scleroticbone lesion in the anterior right 4th rib. Abnormal choline activity within the sclerotic bone lesion in the posterior left 7th rib had increased, SUV max 5.4. Increasing abnormal choline activity inthe T9 vertebral body. New abnormal choline activity at T10 predominantly the left posterior vertebral body and posterior elements, left T11 pedicle, T12-L2 vertebral bodies, and right posterior elements of L3. Little change in the mild choline activity associated with sclerotic bone metastases in the pelvis. No abnormal choline avid lymph nodes appreciated. Stable mild nonspecific choline activity in the central prostate gland. 01/21/2020 - 07/27/2020 Chemotherapy DOCEtaxel every 21 days / PredniSONE x6 cycles. 02/11/2020 Other 02/11/2020, 03/03/2020, 03/24/2020, 04/14/2020, 05/05/2020, 05/26/2020, 05/31/2021, 07/08/2021, 08/13/2021, 09/14/2021, 10/25/2021, 11/15/2021: PSA 1.3, 0.29, 0.12, < 0.10, 0.19, < 0.10, < 0.10, 0.11, < 0.10, 0.16, 0.14, < 0.10. 03/10/2020 Critical Imaging C11 choline PET/CT scan demonstrated that the choline avid bone metastatic disease in the lower thoracic and lumbar spine had improved. Choline activity within the T9 vertebral body had decreased to SUV max 2.4 in the choline avid sclerotic bone metastatic disease involving the right posterior elements of L3 showed decreased activity with SUV max 3.4. Abnormal focus of choline activity within thesclerotic disease in the anterior right 4th rib [...] No new suspicious choline avid lymph nodes. 04/08/2020 Critical Imaging MRI of the pelvis demonstrated persistent but diminished signal abnormality within the sacrum and iliac bones, right greater than left, corresponding to osseous metastatic disease. No discrete pathologic fracture identified. Downsloping/loss of height lateralizing to the right superior endplate of S1. Additional low T1 signal sclerotic osseous metastasis including posterior left acetabulum, similar. No pelvic lymphadenopathy. No inguinal lymphadenopathy. 04/17/2020 Critical Imaging MRI of the lumbar spine demonstrated stable metastatic involvement of the S1 vertebra and right iliac bone, with no pathological enhancement. Stable moderate spinal stenosis and bilateral neural foraminal stenosis, L1-2 level, due to diffuse posterior disc bulging. Progressive metastatic involvement of the T11, T12, and L1 vertebra when compared to 12/05/18. MRI subspecialty over-read of MRI 04/17/2020 with comparisons for MRI 12/23/2019, MRI 12/05/18 and Xrayfrom 11/08/18 show improvement in S1-2. The marrow abnormality at T12/L1 has not changed. No progressive metastatic disease and no epidural neoplasm. L1 is at the inferior aspect of the field of view,so L2 was not assessed. Lesions in L5 and L6 are similar to the exam on 12/05/18. 07/15/2020 Critical Imaging C11 choline PET/CT scan demonstrated newly stable size and intensity of tracer uptake in previouslyseen sclerotic metastases. The left acetabulum lesion had SUV max 2.9 and the sacral lesion had SUVmax 3.8. No new choline avid osseous lesions. Choline avid healing left lower rib fractures. Further decreasing choline uptake of the irradiated thoracolumbar metastases. Nearly stable patchy cholineuptake in the central prostate gland. No suspicious choline avid lymph nodes. 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 End date: 09/09/2020 Critical Imaging MRI of the lumbar spine demonstrated unchanged bony metastatic disease within the T11, T12, L1, L5,sacral S1 and S2 elements, and bilateral iliac bones. Stable L2-L5 spinal fixation. 10/29/2020 Critical Imaging Choline PET/CT showed further reduction the previous noted increased choline uptake within the areas of sclerosis in the left acetabulum and sacrum. No new abnormal choline uptake is seen to indicateadditional tumor metastasis. No evidence of tumor metastasis in the lower extremities. 02/03/2021 Critical Imaging Choline PET/CT scan showed increased uptake in the proximal left 7th posterior rib with an SUV max of 3.8 compared to 2.5 previously. Other areas were unchanged. 03/16/2021 - 03/16/2021 Radiation Therapy Radiotherapy to the left posterior 7th rib was delivered with 800 cGy in 1 fraction. 05/11/2021 Critical Imaging Imaging demonstrated interval improvement of multiple skeletal metastases. There was new uptake surrounding the lumbar hardware in L3 vertebra that is indeterminate that could represent inflammation versus active metastatic lesion. 08/13/2021 Critical Imaging C11 PET choline scan notes interval progression [...] Pulmonary infiltrate on the left lower lobe. 09/13/2021 - 09/17/2021 Radiation Therapy Radiation Therapy Treatment Details Site: Bone - Sacrum and L3-4 Technique: 2D Goal: Curative Sacrum receiving total dose 2000 cGy in 5 fractions. L3-4 receiving total dose of 2000 cGy in 5 fractions. 12/22/2021 Critical Imaging C11 PET Choline scan shows marked interval improvement of the metastatic lesions in the lumbar spine and sacrum represents response to interval radiation therapy. Probable new active metastatic disease within sclerotic lesion in the right 4th rib. The right 10th rib shows more activity by my review when compared to last scan. 01/04/2022 - 01/04/2022 Radiation Therapy Single fraction of radiotherapy to the right 10th rib and the right 4th rib; each area receiving 800 cGy. 03/25/2022 Other 03/25/2022, 05/16/2022, 06/13/2022, 06/27/2022, 07/27/2022, 08/30/2022, 10/11/2022, 11/07/2022: PSA at <0.10 ng/mL, 0.11, 0.18, 0.20, 0.27, 0.12, 0.17, 0.11. 11/22/2022, 12/07/2022, 01/04/2023, 02/01/2023, 02/14/2023, 03/08/2023, 03/28/2023, 05/01/2023, 05/23/2023, 08/25/2023, 10/18/2023, 11/22/2023, 01/10/2024, 02/26/2024, 04/03/2024: PSA at < 0.10 03/25/2022 Critical Imaging Choline PET-CT scan demonstrated decreasing choline uptake in the right 4th and 10th ribs scleroticmetastases, representing response to interval radiation. Slightly heterogeneous bone marrow activity without definite new choline avid osseous lesions. 05/24/[address] lumbar spine demonstrated slight progression of sclerotic metastatic disease at the L2-3 level. Soft tissue metastasis extending into the right L2-S3 neural foramen was slightly less prominent. Calcification of previously seen extruded disc fragment with superior migration on the left at the L1-2 level. Stable postsurgical changes of lumbar spondylosis. 06/22/2022 Critical Imaging MR musculoskeletal pelvis demonstrated mild nonspecific edema/inflammatory changes in the right gluteus silvana muscle, otherwise no findings to explain right ischial tuberosity pain. Chronic sacral insufficiency fractures and evidence of treated osseous metastatic disease. 06/27/2022 Critical Imaging 06/27/2022: PSMA PET-CT scan demonstrated progressive metastatic disease with new and enlarging bone metastases. Radiotracer uptake at the medial and lateral aspects of the radiation zone in the [id number] rib. Mild radiotracer uptake in the radiated right 4th and 10th ribs. Multiple focal radiotracer avid bone lesions including the left C7 transverse process, right T1 transverse process, right mid clavicle, right scapula, and L1 vertebral body. Large radiotracer avid mass in hepatic segment 8 measuring up to 3.6 cm. 06/30/2022: CT abdomen with and without contrast shows redemonstration of ovoid area of abnormal density in the liver compatible with metastatic disease. No other liver lesions identified. Extensive areas of scarring lordosis within multiple bones compatible with metastatic disease. 06/28/2022 - Plan Appointment with Dr. Dover and Angie Farmer, DWAYNE. Patient continued on Olaparib and leuprolide injections. Referral to discuss ablation of the 3.6 cm hepatic metastasis. Orders were placed to start theprocess for Pluvicto therapy for a total of 6 cycles. 07/05/2022 - 07/12/2022 Radiation Therapy Radiation therapy to the left 7th rib to a dose of 2000 cGy in 5 fractions 07/15/2022 Surgery and Procedures Y 90 radioembolization of the oligometastatic lesion within hepatic segment 8. 08/31/2022 - Biological/Targeted/Hormone Therapy Radioligand Therapy Pluvicto: Cycle 1: 08/31/2022 Cycle 2: 10/12/2022 Cycle 3: 11/23/2022 Cycle 4: 01/04/2023 Cycle 5: 02/15/2023 Cycle 6: 03/29/2023 09/01/2022 Critical Imaging 09/01/2022, 10/13/2022, 11/24/2022, 01/05/2023, 02/16/2023, 03/30/2023 post therapy PSMA Successful localization of Em-177 PSMA to the known metastatic disease. No additional foci of Em-177 PSMA localization to suggest new metastasis. No suspicious non-PSMA avid metastatic disease. PSMA expression score: 1 11/22/2022: PET/CT PSMA shows marked partial response of the hepatic and skeletal metastatic lesions to interval therapy. 02/09/2023: MRI abdomen with and without contrast shows Posttreatment changes in hepatic segment 8 without definite residual enhancement. No new suspicious liver lesion. Multifocal marrow replacing lesions throughout the visualized lower thoracic and lumbar spine in keeping with metastatic disease. 02/14/2023: PET/CT PSMA shows significant interval treatment response with only low level radiotraceruptake within the right scapula. No new or progressive disease. miPSMA Expression Score: 1 05/23/[address] choline shows No abnormal choline uptake within the previously noted PSMA avid right scapular metastasis on PSMA PET/CT dated 02/14/2023. Mild choline uptake within a few osseous metastases, in which no abnormal PSMA uptake was seen on PSMA PET/CT dated 02/14/2023. These lesions show interval increased choline uptake since choline PET/CT dated 03/25/2022. No other choline avid rec urrent or metastatic disease. 05/23/2023 CT Abd shows treated liver lesion is unchanged in size since 02/09/2023. No new liver lesion 07/07/2023 US axilla shows Negative ultrasound of the LEFT axilla. 08/25/2023 Critical Imaging 08/25/[address] PSMA shows no PSMA avid recurrent/metastatic disease. miPSMA Expression Score: 0 11/22/[address] Choline shows mild radiotracer uptake at a few of osseous metastasis, stable or slightly decreased in radiotracer uptake compared to 05/23/2023 choline PET/CT. 02/26/2024 PET PSMA shows No significant change since PSMA PET/CT 08/25/2023. No convincing evidence of new or progressing metastatic disease. miPSMA Expression Score: 0 HISTORY REVIEW: The following portions of the patient's history were reviewed and updated as appropriate: medical history, surgical history, family history, social history, allergies, current medications and problemlist. REVIEW OF SYSTEMS Constitutional: - Negative for fatigue, fever, loss of appetite and night sweats. Skin: - Negative for skin rash. Eyes: - Negative for visual problems. ENT: - Negative for difficulty hearing and sinus congestion. Respiratory: - Negative for dry cough, shortness of breath and wheezing. Cardiovascular: - Negative for chest pain, pressure or tightness and swelling in the legs or feet. Gastrointestinal: - Negative for abdominal (belly) pain or cramping, constipation, diarrhea, heartburn (On pantoprazole), nausea and vomiting. Genitourinary: Positive for frequent urination. - Negative for incontinence, pain with urination and urgency. Hematologic: Positive for bruises or bleeds easily. - Negative for abnormal lumps or bumps. Musculoskeletal: Positive for back pain (lower right back, radiates to the right leg, being managedby pain medicine) and muscle pain/stiffness (Cramps right leg usually at night time, better). - Negative for pain or stiffness in the joints. Neurological: Positive for numbness or shooting pain in hands, arms, legs, or feet (Numbness right leg, from prior radiation therapy). - Negative for light-headedness, loss of balance or tendency to fall easily, headaches and weaknessin arms or legs. Psychiatric/Behavioral: Positive for sleep disturbance (Wakes up about 2-3 times at night to urinate). OBJECTIVE VITAL SIGNS BP 117/78 (BP Location: Right arm, Patient Position: Sitting, Cuff Size: Large) Pulse 71 Temp 36.5 ??C (Temporal) Resp 16 Wt 98 kg SpO2 99% BMI 36.00 kg/m?? ECOG Score--0: Fully active, able to carry on all pre-disease performance without restriction PHYSICAL EXAMINATION Vitals and nursing note reviewed. Constitutional Comments: Elderly, obese male. ECOG 1. Eyes General: No scleral icterus. Conjunctiva/sclera: Conjunctivae normal. Pupils: Pupils are equal, round, and reactive to light. Cardiovascular Rate and Rhythm: Normal rate. Rhythm irregular. Heart sounds: Normal heart sounds. No murmur heard. Pulmonary Effort: Pulmonary effort is normal. Breath sounds: No rhonchi or rales. Abdominal Comments: In view of body habitus, difficult to palpate for liver, spleen, and other masses. Musculoskeletal General: No deformity. Lymphadenopathy Comments: No palpable cervical or axillary lymphadenopathy. Skin General: Skin is warm. Findings: No rash. Neurological Mental Status: He is alert and oriented to person, place, and time. Cranial Nerves: No cranial nerve deficit. Gait: Gait abnormal. Psychiatric Mood and Affect: Mood normal. Behavior: Behavior normal. Thought Content: Thought content normal. Judgment: Judgment normal. LABORATORY DATA Lab data reviewed. RADIOLOGICAL DATA Radiology data reviewed. ASSESSMENT / PLAN #1 Primary Malignant Neoplasm Of Prostate (HCC) #2 Secondary Malignant Neoplasm Bone (HCC) #3 Secondary Malignant Neoplasm Liver (HCC) #4 Anemia Chemotherapy Induced Carlos Espinosa is a 73 y.o. 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 PET/CT (PSMA) on 06/27/2022, showed progressive metastatic disease with new and enlarging bone metastasis along with a large radiotracer avid mass in hepatic segment 8, measuring up to 3.6 cm. Y 90 arterial embolization for the liver lesion was done on 07/26/2022. He received 6 cycles of treatment with Pluvicto from 08/31/2022 to 03/29/2023. PET/CT PSMA on 02/14/2023, followed by PET-CT choline on 05/23/2023 and MRI abdomen with and without contrast on 02/09/2023, CT abdomen on 05/23/2023, PET PSMA on 08/25/2023, PET choline on 11/22/2023 and PETPSMA on 02/26/2024, showed an appropriate response to therapy with no evidence of any recurrent or metastatic disease. PSA remains undetectable since 11/22/2022. In June of 2023, a lump was felt in the left axilla, for which an ultrasound was done on 07/07/2023, which was negative for any lymphadenopathy or lipoma. Normal size, nonpathologic lymph nodes were seen. Clinical examination remains negative. He is presently scheduled for a follow-up with Urology and labs along with imaging on 06/05/2024. He will receive leuprolide acetate today on 04/03/2024. He will subsequently receive the next dose of leuprolide acetate in June of 2024. After receiving 18 doses of zoledronic acid (Zometa), interval of zoledronic acid (Zometa) has beenincreased to every 6 months. He received last dose of Zometa (zoledronic acid) today on 10/18/2023 and although he is due for the next dose in end March of 2024, we will go ahead and give the Zometa (zoledronic acid) today on 04/03/2024, so as to streamline the next dose with leuprolide acetate in6 months time. He will continue with vitamin-D supplementation 2000 units daily. We will plan to see him back in 3 months time, for continuation of leuprolide acetate. Since, labs are being done by Urology at [facility], we will only do a CBC and PSA in 2023. In view of his anemia, an anemia workup was done on 05/01/2023. Soluble transferrin receptor MMA, homocystine, and vitamin B6 (PLP), were all normal, thus ruling out nutritional causes for anemia. Inall likelihood anemia is due to the malignancy itself and the treatment received for it. Presently, hemoglobin has always been above 10. We did mentioned to him, that if the hemoglobin tends to run < 10, we may need to do a bone marrow aspiration and biopsy. Reference to the pain lower right back, he is being managed by pain medicine which we advised him to continue follow ups with them. He will continue port flushes every 4-6 weeks. 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 Subsequently olaparib was held on 08/26/2022 prior to initiating Pluvicto treatment. However, while he was on olaparib, he did develop metastatic disease requiring additional radiation therapy and Pluvicto treatment. Hence, we reviewed the role of PARP inhibitors including other options like rucaparib, niraparib, and talazoparib. However based on clinical trials, all of these drugs worked better in patients with BRCA1 and BRCA2 mutations than the other mutations. However trying out another PARP inhibitor may also be an option. Reference to his heartburn, he has been better with pantoprazole 40 mg once a day. Hence we advisedhim to continue the same. With reference to oxycodone, he does follow-up with pain medicine and has received steroids for radicular pain, with which he is better. With reference to opioids, as long as his requirement is minimal, we could give him a prescription. However if he needs to be on chronic opioids, we would then defer to pain medicine. Bernardo was encouraged to keep us informed in case he develops any new symptomatology in the intervening period. Advance Care Planning Health Care Power of Tie Maker: Discussed with Carlos Espinosa Available in EMR 2. Treatment Goals: Control of disease 3. Additional lines of Therapy: Multiple 4. Prognosis: Median Survival: Average for received and comorbidities 5. Patient Personal Goals and understanding of illness: Yes Full code Bernardo has come in alone today. On prior occasions, he has been accompanied by his spouse Vianney (he did mention to us that his son-in-law is a physician in [place]). He had multiple questions for us.All of them, we believe, were answered to his satisfaction. PATIENT EDUCATION Ready to learn, no apparent learning barriers were identified; learning preferences include listening. Explained diagnosis and treatment plan; patient expressed understanding of the content. ADMINISTRATIVE BILLING I personally spent 31+ minutes in care of the patient today. This time includes both face to face and non-face to face time. documented in this encounter Plan of Treatment Upcoming Encounters Date Type Department Care Team (Latest Contact Info) Description 05/13/2024 10:40 AM CDT Appointment Department of Pain Medicine in [place], [place] [address] [place] [phone] Markel Avila M.D. [address] [place] [phone] Discharge Disposition: Home or Self Care 06/03/2024 10:30 AM ORDER PULLER Clinical Communication Virtual Review in [place], [place] [address] [place] [phone] 06/05/2024 10:00 AM ORDER PULLER Lab Department of Infusion Therapy in [place], [place] [address] [place] [phone] Sayda Roberson P.A.-C., M.S. [address] [place] [phone] 06/05/2024 11:45 AM ORDER PULLER Appointment Department of Radiology, [facility], in [place], [place] [address] [place] [phone] Sayda Roberson P.A.-C., M.S. [address] [place] [phone] 06/05/2024 2:45 PM ORDER PULLER Appointment Department of Radiology, [facility], in [place], [place] [address] [place] [phone] Sayda Roberson P.A.-C., M.S. [address] [place] [phone] 06/06/2024 10:00 AM ORDER PULLER Office Visit Department of Urology in [address] [phone] Artemio Dover M.D. [address] [place] [phone] 06/26/2024 9:00 AM ORDER PULLER Office Visit Department of Oncology in [place], [place] [address] [place] [phone] Donny Kelley M.B.B.S. [address] [place] [phone] 06/26/2024 9:30 AM ORDER PULLER Infusion Department of Infusion Therapy in [place], [place] [address] [place] [phone] Donny Kelley M.B.B.S. 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
--- OUTSIDE RECORDS SUMMARY | 2024-04-26 13:36 | XMS_ITS ---
Author Organization [facility] Address [address] [place] [id number] Care Team Providers Care Uniform Attendant Name Role Phone Elsewhere, Pcp Primary Care Provider Unavailabl e Active Problems Problem Noted Date Diagnosed Date Secondary Malignant Neoplasm Liver 06/28/2022 Radiation Therapy Personal History 08/31/2021 Rising Prostate Specific Ant igen Following Treatment For Malignant Cancer Of Prostate 08/17/2021 Anemia Chemotherapy Induced 11/10/2020 Primary Malignant Neoplasm Of Prostate 9 Cancer Staging:Clinical stage from 11/22/2018:Stage IVB(cT3a, cN0, cM1b, PSA: 13.5, Grade Group: 4) - Signed by Fredrcik Singh M.D. on 12/12/2018 Secondary Malignant Neoplasm Bone 12/10/2018 Apnea Sleep Obstructive 05/31/2016 Hypertension 05/31/2016 Spinal Stenosis Lumbar Regio n Without Neurogenic Claudication 05/31/2016 Current Oncology Plans Leuprolide Acetate Every 12 Weeks* Plan Start Date:03/03/2020 Plan Provider:Merline Hess M.D. Linked Problems Secondary Malignant Neoplasm Bone (HCC)Primary Malignant Neoplasm Of Prostate (HCC) Treatment Medications No medications scheduled. Vascular Access Patency - Implanted Vascular Access Device (IVAD) Valved & VASCULAR ACCESS PATENCY - IMPLANTED VASCUL...* Plan Start Date:09/09/2020 Plan Provider:Merline Hess M.D. Linked Problems Secondary Malignant Neoplasm Bone (HCC)Primary Malignant Neoplasm Of Prostate (HCC) Treatment Medications No medications scheduled. Zoledronic Acid ( ZOMETA ) Every 6 Months - for Bone Metastasis* Plan Start Date:05/01/2023 Plan Provider:Donny Kelley M.B.B.S. Linked Problems Primary Malignant Neoplasm O f Prostate (HCC)Secondary Malignant Neoplasm Bone (HCC) Treatment Medications No medications scheduled. Past Plans Flushes/Hydration Plan Name Start Date Discontinue Date Treatment Medications Discontinue Reason Plan Provider VASCULAR ACCESS PATENCY - IMPLANTED VASCULAR ACCESS DEVICE (IVAD) VALVED 01/21/2020 09/09/2020 No medications scheduled. Therapy Complete Merline Hess M.D. Hem/Onc Therapy Plan 1 Plan Name Start Date Discontinue Date Treatment Medications Discontinue Reason Plan Provider Zoledronic Acid ( ZOMETA ) Monthly - for Bone Metastasis 12/24/2019 02/01/2023 No medications scheduled. Therapy Complete Merline Hess M.D. Hematology / Oncology Treatment 1 Plan Name Start Date Discontinue Date Treatment Medications Discontinue Reason Plan Provider Cycles DOCEtaxel every 21 days / PredniSONE 01/21/2020 07/28/2020 DOCEtaxel (Taxotere)DOCE taxeL (Taxotere) IVPB in 250 mL (Taxotere) Not Tolerated Merline Hess M.D. 9 of 10 cycles started Hematology / Oncology Treatment 2 Plan Name Start Date Discontinue Date Treatment Medications Discontinue Reason Plan Provider Cycles Olaparib 1 04/26/2024 olaparib (Lynparza) Discontinuation of Plans with No Action >1 year-System Maintenance Merline Hess M.D. 27 of 29 cycles started Radiation Treatments * Plan Last Treated On Elapsed Days Fractions Treated Prescribed Fraction Dose Prescribed Total Dose [id number] 07/12/2022 7 5 of 5 400 cGy 2,000 cGy [id number]_10th 01/04/2022 0 1 of 1 800 cGy 800 cGy F1RibR_4th 01/04/2022 0 1 of 1 800 cGy 800 cGy F1_L3-4 09/17/2021 4 5 of 5 400 cGy 2,000 cGy F1_Sacrum 09/17/2021 4 5 of 5 400 cGy 2,000 cGy F1 [id number] 03/16/2021 0 1 of 1 800 cGy 800 cGy F1 [id number] 01/01/2020 6 5 of 5 400 cGy 2,000 cGy F1 R foot 12/20/2018 6 5 of 5 400 cGy 2,000 cGy F1 pelvis 12/20/2018 6 5 of 5 400 cGy 2,000 cGy Reference Point Last Treated On Elapsed Days Session Dose Total Dose [id number] 07/12/2022 7 400 cGy 2,000 cGy [id number] 01/04/2022 0 800 cGy 800 cGy [id number] 01/04/2022 0 800 cGy 800 cGy [id number] 09/17/2021 4 400 cGy 2,000 cGy [id number] 09/17/2021 4 400 cGy 2,000 cGy [id number] 03/16/2021 0 800 cGy 800 cGy [id number] 01/01/2020 6 400 cGy 2,000 cGy [id number] R foot 12/20/2018 6 400 cGy 2,000 cGy [id number] pelvis 12/20/2018 6 400 cGy 2,000 cGy Lifetime Dose Tracking * Chemical Lifetime Dose Automatic Entry Manual Entr y Radiation 416.417 mGy 416.417 mGy 0 mGy Fluoro Time 22.221 minutes 22.221 minutes 0 minutes
--- OUTSIDE RECORDS SUMMARY | 2024-04-26 13:36 | XMS_ITS | Clinical Summary ---
Author Organization [facility] Address [address] [place] [address] Care Team Providers Care Paint Grinder Name Role Phone Elsewhere, Pcp Primary Care Provider Unavailabl e Source Comments Patient records contain information from all sites at [facility]. For routine questions regarding patient records, call [phone] during business hours, M-F 8:00 AM - 5:00 PM Central Time. Record requests for emergency care only can be directed to [phone] at any time.[facility] Allergies No known active allergies Medications Medication [...] Lumbar Regio n Without Neurogenic Claudication 05/31/2016 Encounters Date Type Department Care Team Description 04/03/2024 9:30 AM CDT Infusion Department of Infusion Therapy in [address] [phone] Donny Kelley M.B.B.S. Primary Malignant Neoplasm Of Prostate (HCC) (Primary Dx); Secondary Malignant Neoplasm Bone (HCC) 04/03/2024 9:00 AM CDT Office Visit Department of Oncology in [place] [address] [place] [address] Donny Kelley M.B.B.S. Primary Malignant Neoplasm Of Prostate (HCC) (Primary Dx); Secondary Malignant Neoplasm Bone (HCC); Secondary Malignant Neoplasm Liver (HCC); Anemia Chemotherapy Induced 04/03/2024 8:30 AM CDT Lab Department of Infusion Therapy in [place], [place] [address] [place] [address] Donny Kelley M.B.B.S. Secondary Malignant Neoplasm Bone (HCC) (Primary Dx); Primary Malignant Neoplasm Of Prostate (HCC); Secondary Malignant Neoplasm Liver (HCC); Anemia Chemotherapy Induced 03/29/2024 Clinical Communication Department of Pain Medicine in [address] [address] Markel Avila M.D. 03/25/2024 Documentation Department of Pain Medicine in [address] [phone] Markel Avila M.D. 03/12/2024 8:00 AM CDT Office Visit Department of Pain Medicine in [address] [address] Markel Avila M.D. Radiculopathy Lumbar (Primary Dx); Pain Sacroiliac; Metastatic Cancer (HCC) Discharge Disposition: Home or Self Care 02/27/2024 10:30 AM CDT Office Visit Department of Urology in [place], [place] [address] [place] [address] Artemio Dover M.D. Primary Malignant Neoplasm Of Prostate (HCC) (Primary Dx); Secondary Malignant Neoplasm Bone (HCC); Secondary Malignant Neoplasm Liver (HCC); Rising Prostate Specific Antigen Following Treatment For Malignant Cancer Of Prostate 02/26/2024 2:15 PM CDT Infusion Department of Infusion Therapy in [place], [place] [address] [place] [phone] Merline Hess M.D. Secondary Malignant Neoplasm Liver (HCC); Secondary Malignant Neoplasm Bone (HCC); Anemia Chemotherapy Induced; Primary Malignant Neoplasm Of Prostate (HCC) 02/26/2024 10:20 AM CDT - 02/26/2024 11:59 PM CDT Hospital Encounter Department of Radiology, [facility], in [place], [place] [address] [place] [phone] Lacy Dennis APRN C.N.P., M.S.N. Primary Malignant Neoplasm Of Prostate (HCC); Secondary Malignant Neoplasm Bone (HCC); Secondary Malignant Neoplasm Liver (HCC); Rising Prostate Specific Antigen Following Treatment For Malignant Cancer Of Prostate Discharge Disposition: Home or Self Care 02/26/2024 10:20 AM CDT Lab Department of Infusion Therapy in [place], [place] [address] [place] [phone] Lacy Dennis, Raul TOBAR.N.P., M.S.N. Secondary Malignant Neoplasm Bone (HCC) (Primary Dx); Primary Malignant Neoplasm Of Prostate (HCC); Secondary Malignant Neoplasm Liver (HCC); Rising Prostate Specific Antigen Following Treatment For Malignant Cancer Of Prostate 02/26/2024 Clinical Communication Department of Infusion Therapy in [address] [phone] Ly Meyer R.N. 02/23/2024 9:00 AM CDT Clinical Communication Virtual Review in [place], [place] 200 [place] [address] Pre-visit Intake from Last 3 Months Family History Medical History Relation Name Comments Other cancer Daughter Angie Neck throat, mo re aggressive jackie normal Seizures Daughter Angie Relation Name Status Comments Daughter Angie Social History Tobacco Use Types Packs/Day Years Used Date Smoking Tobacco: Former Cigarettes 0 07/25/1961 - 12/23/1969 Passive Smoke Exposure: Past Smokeless Tobacco: Never Tobacco Cessation:Counseling Given: Not Answered Comments:Used lightly ,stopped 50years ago Alcohol Use Standard Drinks/Week Comments Yes 2 (1 standard drink = 0.6 oz pur e alcohol) Negligable one beer/ week [facility] Utilities Answer Date Recorded In the past 12 months has th e [employer], [employer], oil, or water [employer] threatened to shut off services in your [...] often do you attend chur ch or mormonism services? More than 4 times per year 09/28/2022 Do you belong to any clubs o r organizations such as episcopal groups, unions, fraternal or athletic groups, or [...] care, and heating? Not very hard 09/28/2022 [facility] - [...] your living situation today? [facility] 11/18/2023 Education Answer Date Recorded What is the highest level of school you have completed or the highest degree you have received? Master's degree (e.g., MA, MS, Kedar, MEd, JAVA SECURITY ENGINEER, OLIVER) 10/01/2020 Sex and Gender Information Value [...] 165 cm (5' 4.96) 07/19/2023 9:25 AM MATERIALS MANAGEMENT MANAGER Body Mass Index 36 07/19/2023 9:25 AM MATERIALS MANAGEMENT MANAGER Plan of Treatment Upcoming Encounters Date Type Department Care Team (Latest Contact Info) Description 05/13/2024 10:40 AM CDT Appointment Department of Pain Medicine in [address] [phone] Markel Avila M.D. [address] [place] [phone] Discharge Disposition: Home or Self Care 06/03/2024 10:30 AM MATERIALS MANAGEMENT MANAGER Clinical Communication Virtual Review in [place], [place] 200 [place] [address] 06/05/2024 10:00 AM MATERIALS MANAGEMENT MANAGER Lab Department of Infusion Therapy in [place], [place] [address] [place] [phone] Sayda Roberson P.A.-Raul., M.S. [address] [place] [phone] 06/05/2024 11:45 AM MATERIALS MANAGEMENT MANAGER Appointment Department of Radiology, [facility], in [place], [place] [address] [place] [phone] Sayda Roberson P.A.Marely., M.S. [address] [place] [phone] 06/05/2024 2:45 PM MATERIALS MANAGEMENT MANAGER Appointment Department of Radiology, [facility], in [place], [place] [address] [place] [address] Sayda Roberson P.A.-C., M.S. [address] [place] [address] 06/06/2024 10:00 AM MATERIALS MANAGEMENT MANAGER Office Visit Department of Urology in [place], [place] [address] [place] [address] Artemio Dover M.D. [address] [place] [phone] 06/26/2024 9:00 AM MATERIALS MANAGEMENT MANAGER Office Visit Department of Oncology in [place], [place] [address] [place] [phone] Donny Kelley, M.B.B.S. [address] [place] [address] 06/26/2024 9:30 AM MATERIALS MANAGEMENT MANAGER Infusion Department of Infusion Therapy in [address] [phone] Donny Kelley, M.B.B.S. [address] [place] [phone] Health Maintenance Due Date Last Done Comments CT Colonography 1950 Cologuard 1950 Hepatitis C Screening 1950 Colonoscopy 12/10/2020 12/11/2015 Colorectal Cancer Surveillance 12/10/2020 Depression Screening (Annual PHQ-2) 07/17/2023 Fall Risk Screen (Annual) 07/17/2023 COVID-19 Vaccine ( season) 2024 03/07/2023, 04/26/2022, 10/06/2021, Additional history exists Influenza Vaccine (#1) 2024 3, 04/26/2022, 05/05/2021, Additional history exists Sodium Level 05/01/2024 05/01/2023, 03/17, 03/08/2023, Additional history exists Potassium Level 11/21/2024 11/22/2023, 03/2024, 05/23/2023, Additional history exists Creatinine Level (Kidney Function Test) 04/03/2025 04/03/2024, 10/18/2023, 05/01/2023, Additional history exists Office Visit for Blood Pressure Check / Re-check 04/03/2025 04/03/2024 DTaP,Tdap,and Td Vaccines (2 - Td or Tdap) 06/16/2025 06/16/2015 Fasting Glucose for Diabetes Screening 05/01/2026 05/01/2023, 03/28/2023, 03/08/2023, Additional history exists Pneumococcal vaccine (65+ years) Completed 08/24/2018, 06/16/2015 Zoster Vaccines Completed 12/03/2018, 07/2018, 08/02/2013 Abdominal Aortic Aneurysm (AAA) Screen Discontinued 05/23/2023, 06/30/2022, 10/25/2021 RSV vaccine - (32-36 weeks) or 60+ years Completed 05/25/2023 HPV Vaccines Aged Out No longer eligi ble based on patient's age to complete this topic Medical Devices Implanted Type Area Patent Leather Sorter Device Identifier Shelf Expiration Date Model / Serial / Lot Prt Cath Infus Mri Ti 8f - [id number] Implanted:Qt y: 1 on 01/21/2020 by Cruz Garza M.D. at [facility] Implantable Port Right: Chest C.R.Bard 10/14/2022 [id number] / / [id number] Mesh Or Patch Mesh or Patch Anterior: [...] inpatients and all outpatients) 05/23/2023 3:49 PM MATERIALS MANAGEMENT MANAGER Primary Malignant Neoplasm Of Prostate (HCC) Secondary [...] AM CDT Donny Mcgrath LAB BLOOD ADD-ON [facility] [address] [place] [address], [facility] NPRG [facility] [address] [place] [address] * PSA (Prostate-Specific Antigen), Diagnostic (04/03/2024 8:42 [...] AM CDT Donny CastilloS. LAB BLOOD ADD-ON [facility] [address] [place] [address], [facility] NPRG [address] [address] * Creatinine with Estimated GFR (04/03/2024 8:42 AM CDT) Creatinine 1.14 0.74 - 1.35 mg/dL 04/03/2024 9:08 AM CDT NPRG Estimated GFR (eGFR) 67 >=60 mL/min/BSA 04/03/2024 9:08 AM CDT NPRG Comment: Estimated GFR calculated using the 2020 CKD_EPI creatinine equation. Blood (Blood, Venous) 04/03/2024 8:42 AM CDT 04/03/2024 8:44 AM CDT Donny LagunaB.S. LAB BLOOD ADD-ON [facility] [address] [place] [address], [facility] NPRG [place] [phone] * Calcium, Total (04/03/2024 8:42 AM CDT) Calcium, Total, P 9.4 8.8 - 10.2 mg/dL 04/03/2024 9:08 AM CDT NPRG Blood (Blood, Venous) 04/03/2024 8:42 AM CDT 04/03/2024 8:44 AM CDT Donny Mcgrath LAB BLOOD ADD-ON [facility] [address] [place] [address], [facility] NPRG [facility] [address] [place] [address] * PET CT Skull to Thigh PSMA [...] PET CT 08/25/2023. INDICATION: ??Metastatic prostate cancer (Martin 4+4), restaging. Status post Y90 therapy to [...] PET CT 08/25/2023. INDICATION: Metastatic prostate cancer (Martin 4+4), restaging. Statuspost Y90 therapy to a liver metastasis and radiation therapy formetastatic rib, spine, and pelvis lesions. Pluvicto treatment completed inSeptember 2022 (x6 cycles). Interval leuprolide therapy. Subsequent treatment [...] progressing metastatic disease. miPSMA Expression Score: 0 Lacy Dennis APRN, C.N.P., M.S.N . IMG NM PROCEDURES * ALT (Alanine Aminotransferase) (02/26/2024 10:15 AM CDT) Alanine Aminotransferase (ALT), S 20 7 - 55 U/L 02/26/2024 11:51 AM CDT DTL Blood (Blood, Venous) 02/26/2024 10:15 AM CDT 02/26/2024 10:51 AM CDT Lacy Dennis APRN, C.N.P., M.S.N . LAB BLOOD ADD-ON [facility] [address] [place] [address], [facility] [address] [place] [address] * AST (Aspartate Aminotransferase) (02/26/2024 10:15 AM CDT) Aspartate Aminotransferase (AST), S 24 8 - 48 U/L 02/26/2024 11:51 AM CDT DTL Blood (Blood, Venous) 02/26/2024 10:15 AM CDT 02/26/2024 10:51 AM CDT Lacy Dennis APRN, C.N.P., M.S.N . LAB BLOOD ADD-ON Performing Organization Address City/[facility]/ZIP Co de Phone Number [facility] [address] [place], [place] [phone] [place] [address] [address] [place] [address] * (ABNORMAL) Testosterone, Total by Mass Spectrometry, Serum (02/26/2024 10:15 AM CDT) Pathologist [facility] Testosterone, Total by Mass Spectrometry, Serum <7.0(L) 240 - 950 ng/dL 02/27/2024 10:30 AM CDT [facility] Comment: ----ADDITIONAL INFORMATION---- Testing performed by Liquid Chromatography-Tandem Mass Spectrometry (LC-MS/MS). This test was developed and its performance characteristics determined by [facility] in a manner consistent with CLIA requirements. This test has not been cleared or approved by the U.S. Food and Drug Administration. Blood (Blood, Venous) 02/26/2024 10:15 AM CDT 02/26/2024 1:23 PM CDT Lacy Dennis APRN, C.N.P., M.S.N . LAB BLOOD NON ADD-ON Performing Organization Address [facility]/ZIP Co de Phone Number [facility] [address] [place] [address] [facility] [address] [place] [address] [place] [address] * Alkaline Phosphatase (02/26/2024 10:15 AM CDT) Alkaline Phosphatase, S 48 40 - 129 U/L 02/26/2024 11:51 AM CDT DT Blood (Blood, Venous) 02/26/2024 10:15 AM CDT 02/26/2024 10:51 AM CDT Lacy Dennis APRN, C.N.P., M.S.N . LAB BLOOD ADD-ON Performing Organization Address City/[facility]/ZIP Co de Phone Number [facility] [address] [place], [place] [phone] [place] [address] 200 [place] [address] * Bilirubin, Direct (02/26/2024 10:15 AM CDT) Bilirubin, Direct, S <0.2 0.0 - 0.3 mg/dL 02/26/2024 11:51 AM CDT DTL Blood (Blood, Venous) 02/26/2024 10:15 AM CDT 02/26/2024 10:51 AM CDT Raul Hook APRN.N.Gage., M.S.N . LAB BLOOD ADD-ON Performing Organization Address City/[facility]/ZIP Co de Phone Number [facility] [address] [place], [place] [phone] [place] [address] 200 [place] [address] * Bilirubin, Total (02/26/2024 10:15 AM CDT) Bilirubin, Total, S 0.3 0.0 - 1.2 mg/dL 02/26/2024 11:51 AM CDT DT Blood (Blood, Venous) 02/26/2024 10:15 AM CDT 02/26/2024 10:51 AM CDT Raul Hook APRN.N.P., M.S.N . LAB BLOOD ADD-ON [facility] [address] [place], [place] [address] [address] [place] [address] * Potassium (11/22/2023 2:23 PM CDT) Potassium, S 4.5 3.6 - 5.2 mmol/L 11/22/2023 3:24 PM CDT DTL Blood (Blood, Venous) 11/22/2023 2:23 PM CDT 11/22/2023 2:53 PM CDT Sayda Arti Da Acosta M.S. LAB ERICA Guy ADD-ON [facility] [address] [place] [address], [place] DTL [facility] [address] [place] [address] * CT Abdomen with IV Contrast (05/23/2023 3:49 PM MATERIALS MANAGEMENT MANAGER) Anatomical Region Laterality Modality Abdomen, Abdominal RST LOS, Abdominal ARZ LOS, Abdominal FLA LOS N/A Computed Tomography, Comput ed Tomography 05/23/2023 3:50 PM MATERIALS MANAGEMENT MANAGER Impressions 05/23/2023 3:55 PM MATERIALS MANAGEMENT MANAGER Treated liver lesion is unchanged in size since 02/09/2023. No new liver lesion. Narrative 05/23/2023 3:55 PM MATERIALS MANAGEMENT MANAGER EXAM: ??CT ABDOMEN WITH IV CONTRAST COMPARISON: [...] since 02/09/2023. No new liverlesion. Angie Wheeler APRN, C.N.P., M.S.N. IM G CT PROCEDURES * [...] AM CDT 05/01/2023 8:04 AM CDT Donny Mcgrath LAB BLOOD ADD-ON [facility] [address] [place] [address], [facility] NPRG [facility] [address] [place] [address] from Last 3 Months or Most Recently Relevant to Health Maintenance Advance Directives For more information, please contact: [phone] Documents on File Type Date Recorded Patient It Architecture Consultant Expl anation Advance Directives 03/03/2020 11:17 AM POA for health care Healthcare Agents on File Name Relationship Healthcare Agent Relationship Communication Vianney Jesús Spouse Health Care Agent Arminda Bernardo Daughter First Alternate Health Care Agent Zoie Espinosa Second Alternate Health Care Agent Iqra Rajinder Second [facility] Health Care Agent Care Teams Paint Grinder Relationship Specialty Start Date End Date Elsewhere, Pcp PCP - General Internal Medicine 06/27/22
--- OUTSIDE RECORDS SUMMARY | 2024-04-26 13:36 | XMS_ITS | Encounter Summary ---
Author Organization [facility] Address [address] [place] [address] Care Team Providers Care Social Media Marketing Analyst Name Role Phone Elsewhere, Pcp Primary Care Provider Unavailabl e Encounter Details Date Type Department Care Team (Late st Contact Info) Description 03/29/2024 Clinical Communication Department of Pain Medicine in [address] [address] Markel Avila M.D. [address] [place] [phone] Social History Tobacco Use Types Packs/Day Years Used Date Smoking Tobacco: Former Cigarettes 0 07/25/1961 - 12/23/1969 Passive Smoke Exposure: Past Smokeless Tobacco: Never Comments:Used lightly ,stopp ed 50years ago Alcohol Use Standard Drinks/Week Comments Yes 2 (1 standard drink = 0.6 oz pur e alcohol) Negligable one beer/ week [facility] Utilities Answer Date Recorded In the past 12 months has [employer], [email or web address], or [employer] threatened to shut off services in your [...] How often do you attend chur or synagogue services? More than 4 times per year 09/28/2022 Do you belong to any clubs o r organizations such as gnosticist groups, unions, fraternal or athletic groups, or [...] care, and heating? Not very hard 09/28/2022 [facility] of Occupat ional Health - Occupational Stress [...] your living situation today? I have a [facility] place to live 11/18/2023 Education Answer Date Recorded What is the highest level of school you have completed or the highest degree you have received? Master's degree (e.g., MA, MS, Kedar, MEd, DETAIL SERGEANT, OLIVER) 10/01/2020 Sex and Gender Information Value [...] No 08/03/2022 documented as of this encounter Miscellaneous Notes * Telephone Encounter - Angela Lyons R.N. - 03/29/2024 2:15 PM CDT Called and spoke with patient and reviewed Dr. Avila's response to patient. Patient is in agreement to reschedule his procedure until after his vacation. Patient Access to contact patient to reschedule. documented in this encounter Plan of Treatment Upcoming Encounters Date Type Department Care Team (Latest Contact Info) Description 05/13/2024 10:40 AM CDT Appointment Department of Pain Medicine in [address] [phone] Markel Avila M.D. [address] [place] [phone] Discharge Disposition: Home or Self Care 06/03/2024 10:30 AM NITRATOR OPERATOR Clinical Communication Virtual Review in [address] [phone] 06/05/2024 10:00 AM NITRATOR OPERATOR Lab Department of Infusion Therapy in [address] [phone] Sayda Roberson P.A.-C., M.S. [address] [place] [phone] 06/05/2024 11:45 AM NITRATOR OPERATOR Appointment Department of Radiology, [facility], in [address] [address] Sayda Roberson P.A.-C., M.S. [address] [place] [phone] 06/05/2024 2:45 PM NITRATOR OPERATOR Appointment Department of Radiology, [facility], in [address] [address] Sayda Roberson P.A.-C., M.S. [address] [place] [address] 06/06/2024 10:00 AM NITRATOR OPERATOR Office Visit Department of Urology in [place], [place] [address] [place] [address] Artemio Dover M.D. [address] [place] [address] 06/26/2024 9:00 AM NITRATOR OPERATOR Office Visit Department of Oncology in [place], [place] [address] [place] [phone] Donny Kelley M.B.B.S. [address] [place] [phone] 06/26/2024 9:30 AM NITRATOR OPERATOR Infusion Department of Infusion Therapy in [place], [place] [address] [place] [phone] Donny Kelley M.B.B.S. [address] [place] [phone] documented as of this encounter Visit Diagnoses Not on filedocumented in this encounter Care Teams Social Media Marketing Analyst Relationship Specialty Start Date End Date Elsewhere, Pcp PCP - General Internal Medicine 06/27/22 documented as of this encounter
--- OUTSIDE RECORDS SUMMARY | 2024-04-26 13:36 | XMS_ITS | Encounter Summary ---
Author Organization [facility] Address [address] [place] [address] Care Team Providers Care Pressure Controller Name Role Phone Elsewhere, Pcp Primary Care Provider Unavailabl e Reason for Referral * Outpatient (Routine) - Authorized Specialty Diagnoses / Procedures Referred By Contrush t Referred To Contact Diagnoses Pain Sacroiliac Procedures [place] Spine Lateral Branch Nerve Block Injection Right [place] INJ ANES/STEROID NERVES SACROILIAC JNT Markel Avila M.D. [address] [place] [phone] [facility] Region Referral ID Status Reason Start Date Expiration Date V isits Requested Visits Authorized [id number] Authorized 03/25/2024 03/25/2025 1 1 Encounter Details Date Type Department Care Team (Late st Contact Info) Description 03/25/2024 Documentation Department of Pain Medicine in [address] [address] Markel Avila M.D. [facility] [place] [address] Social History Tobacco Use Types Packs/Day Years Used Date Smoking Tobacco: Former Cigarettes 0 07/25/1961 - 12/23/1969 Passive Smoke Exposure: Past Smokeless Tobacco: Never Comments:Used lightly ,stopp ed 50years ago Alcohol Use Standard Drinks/Week Comments Yes 2 (1 standard drink = 0.6 oz pur e alcohol) Negligable one beer/ week [facility] Utilities Answer Date Recorded In the past 12 months has e electric, gas, oil, or water company threatened to shut off services in your [...] often do you attend chur ch or protestant services? More than 4 times per year 09/28/2022 Do you belong to any clubs o r organizations such as rastafari groups, unions, fraternal or athletic groups, or [...] care, and heating? Not very hard 09/28/2022 [facility] of Occupat ional Health - Occupational [...] Master's degree (e.g., MA, MS, Kedar, MEd, POTATO SPOTTER, OLIVER) 10/01/2020 Sex and Gender Information Value [...] Progress Notes * Markel Avila M.D. - 03/25/2024 7:37 PM CDT Placing Sacral Lateral Branch Block order RIGHT. Ok to continue blood thinning agents. Will need RFA if successful in RST. documented in this encounter Plan of Treatment Upcoming Encounters Date Type Department Care Team (Latest Contact Info) Description 05/13/2024 10:40 AM CDT Appointment Department of Pain Medicine in [address] [phone] Markel Avila M.D. [address] [place] [phone] Discharge Disposition: Home or Self Care 06/03/2024 10:30 AM STAFFING PROGRAM MANAGER Clinical Communication Virtual Review in [place], [place] [address] [place] [phone] 06/05/2024 10:00 AM STAFFING PROGRAM MANAGER Lab Department of Infusion Therapy in [place], [place] [address] [place] [phone] Sayda Roberson P.A.-C., M.S. [address] [place] [phone] 06/05/2024 11:45 AM STAFFING PROGRAM MANAGER Appointment Department of Radiology, [facility], in [place], [place] [address] [place] [address] Sayda Roberson P.A.-C., M.S. [address] [place] [phone] 06/05/2024 2:45 PM STAFFING PROGRAM MANAGER Appointment Department of Radiology, [facility], in [place], [place] [address] [place] [address] Sayda Roberson P.A.-C., M.S. [address] [place] [phone] 06/06/2024 10:00 AM STAFFING PROGRAM MANAGER Office Visit Department of Urology in [place], [place] [address] [place] [address] Artemio Dover M.D. [address] [place] [phone] 06/26/2024 9:00 AM STAFFING PROGRAM MANAGER Office Visit Department of Oncology in [place], [place] [address] [place] [phone] Donny Kelley M.B.B.S. [address] [place] [phone] 06/26/2024 9:30 AM STAFFING PROGRAM MANAGER Infusion Department of Infusion Therapy in [place], [place] [address] [place] [phone] Donny Kelley M.B.B.S. [address] [place] [phone] documented as of this encounter Visit Diagnoses Diagnosis Pain Sacroiliac- Primary documented in this encounter Care Teams Pressure Controller Relationship Specialty Start Date End Date Elsewhere, Pcp PCP - General Internal Medicine 06/27/22 documented as of this encounter
--- OUTSIDE RECORDS SUMMARY | 2024-04-26 13:36 | XMS_ITS ---
Author Organization [facility] Address [address] [place] [address] Care Team Providers Care Manager Practice Name Role Phone Unavailable Unavailable Unavailable Surgery Details Not on file Complications Check Surgery Details section. Procedure Estimated Blood Loss Check Surgery Details section. Procedure Findings Check Surgery Details section. Procedure Specimens Taken Check Surgery Details section.
--- OUTSIDE RECORDS SUMMARY | 2024-04-26 13:37 | XMS_ITS | Encounter Summary ---
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 [address] [place] [address] [facility] Region Referral ID Status Reason Start Date Expiration Date Visits Re quested Visits Authorized [id number] Closed 02/08/2023 02/08/2024 6 6 Encounter Details Date Type Department Care Team (Late st Contact Info) Description 02/26/2024 2:15 PM CDT Infusion Department of Infusion Therapy in [place], [place] [address] [place] [address] Merline Hess M.D. [address] [place] [address] Secondary Malignant Neoplasm Liver (HCC); Secondary Malignant Neoplasm Bone (HCC); Anemia Chemotherapy Induced; Primary Malignant Neoplasm Of Prostate (HCC) Social History Tobacco Use Types Packs/Day Years Used Date Smoking Tobacco: Former Cigarettes 0 07/25/1961 - 12/23/1969 Passive Smoke Exposure: Past Smokeless Tobacco: Never Comments:Used lightly ,stopp ed 50years ago Alcohol Use Standard Drinks/Week Comments Yes 2 (1 standard drink = 0.6 oz pur e alcohol) Negligable one beer/ week [facility] Utilities Answer Date Recorded In the past 12 months has e [employer], gas, oil, or water [employer] threatened to shut off services in your [...] often do you attend chur ch or anabaptist services? More than 4 times per year 09/28/2022 Do you belong to any clubs o r organizations such as oriental orthodox groups, unions, fraternal or athletic groups, or [...] care, and heating? Not very hard 09/28/2022 [facility] of Occupat ional Health - Occupational Stress [...] your living situation today? I have a [facility] place to live 11/18/2023 Education Answer Date Recorded What is the highest level of school you have completed or the highest degree you have received? Master's degree (e.g., MA, MS, Kedar, MEd, DEVIL TENDER, OLIVER) 10/01/2020 Sex and Gender Information Value Date Recorded Sex Assigned at Male 02/10/2020 2:14 PM CDT Gender Identity Male 01/30/2020 5:22 PM CDT Sexual Orientation Straight 02/27/2020 8: 34 PM CDT documented as of this encounter Last Filed Vital Signs Vital Sign Reading Time Taken Comments Blood Pressure 122/54 02/26/2024 2:27 PM CDT Pulse 71 02/26/2024 2:27 PM CDT Temperature 36.5 ??C (97.7 ??F) 02/26/2024 2:27 PM CD T Respiratory Rate 16 02/26/2024 2:27 PM CDT Oxygen Saturation - - Inhaled Oxygen Concentration - - Weight - - Height - - Body Mass Index - - documented in this encounter Functional Status Functional Status Response Date of Assess ment Does this person have seriou s difficulty walking or climbing stairs? No 08/03/2022 documented as of this encounter Plan of Treatment Upcoming Encounters Date Type Department Care Team (Latest Contact Info) Description 05/13/2024 10:40 AM CDT Appointment Department of Pain Medicine in [address] [phone] Markel Avila M.D. [facility]5 [place] [address] Discharge Disposition: Home or Self Care 06/03/2024 10:30 AM ACCOUNT ADVISOR Clinical Communication Virtual Review in [place], [place] [address] [place] [address] 06/05/2024 10:00 AM ACCOUNT ADVISOR Lab Department of Infusion Therapy in [place], [place] [address] [place] [phone] Sayda Roberson P.A.-C., M.S. [address] [place] [phone] 06/05/2024 11:45 AM ACCOUNT ADVISOR Appointment Department of Radiology, [facility], in [place], [place] [address] [place] [address] Sayda Roberson P.A.-C., M.S. [address] [place] [phone] 06/05/2024 2:45 PM ACCOUNT ADVISOR Appointment Department of Radiology, [facility], in [place], [place] [address] [place] [address] Sayda Roberson P.A.-C., M.S. [address] [place] [phone] 06/06/2024 10:00 AM ACCOUNT ADVISOR Office Visit Department of Urology in [place], [place] [address] [place] [address] Artemio Dover M.D. [address] [place] [phone] 06/26/2024 9:00 AM ACCOUNT ADVISOR Office Visit Department of Oncology in [place], [place] [address] [place] [phone] Donny Kelley, M.B.B.S. [address] [place] [phone] 06/26/2024 9:30 AM ACCOUNT ADVISOR Infusion Department of Infusion Therapy in [place], [place] [address] [facility] [place] [phone] Donny Kelley M.B.B.S. 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 This dose may be repeated once (maximum dose of 4 mg per catheter lumen within 24 hours). If catheter lumen volume exceeds the weight-based dose volume, add sterile water for injection to equal the internal lumen volume. Note: Administer per [facility] Nursing Policy: Central Venous Access Device Declotting. For Cathflo Activase vials - Reconstitute each 2mL vial with 2.2mL SWFI. Slight foaming may occur. Let stand to allow bubbles to dissipate. Gently swirl. Do NOT shake. Resulting solution will be colorless to pale yellow and transparent. For Frozen Syringes - Allow alteplase solution to fully thaw at room temperature prior to intra-catheter instillation. Given 02/26/2024 2:50 PM CDT 2 mg documented in this encounter Care Teams Mix House Tender Relationship Specialty Start Date End Date Elsewhere, Pcp PCP - General Internal Medicine 06/27/22 documented as of this encounter
--- OUTSIDE RECORDS SUMMARY | 2024-04-26 13:37 | XMS_ITS | Encounter Summary ---
Author Organization [facility] Address [address] [place] [address] Care Team Providers Care Electric Brain Wave Equipment Mechanic Name Role Phone Elsewhere, Pcp Primary Care Provider Unavailabl e Reason for Visit * Reason Onset Date Comments Pre-visit Intake 02/23/2024 Encounter Details Date Type Department Care Team (Latest Contact Info) Description 02/23/2024 9:00 AM CDT Clinical Communication Virtual Review in [address] [phone] Pre-visit Intake Social History Tobacco Use Types Packs/Day Years Used Date Smoking Tobacco: Former Cigarettes 0 07/25/1961 - 12/23/1969 Passive Smoke Exposure: Past Smokeless Tobacco: Never Comments:Used lightly ,stopp ed 50years ago Alcohol Use Standard Drinks/Week Comments Yes 2 (1 standard drink = 0.6 oz pur e alcohol) Negligable one beer/ week [facility] Utilities Answer Date Recorded In the past 12 months has [employer] electric, gas, oil, or water company threatened [...] week 09/28/2022 How often do you attend [facility] or synagogue services? More than 4 times per year 09/28/2022 Do you belong to any clubs o r organizations such as advent groups, unions, fraternal or athletic groups, or [...] care, and heating? Not very hard 09/28/2022 [facility] of Occupat ional Health - Occupational Stress [...] your living situation today? I have a [facility] place to live 11/18/2023 Education Answer Date Recorded What is the highest level of school you have completed or the highest degree you have received? Master's degree (e.g., MA, MS, Kedar, MEd, ATTENDING UROLOGIST, OLIVER) 10/01/2020 Sex and Gender Information Value [...] CDT Appointment Department of Pain Medicine in [place], [place] [address] [place] [address] Markel Avila M.D. [address] [place] [phone] Discharge Disposition: Home or Self Care 06/03/2024 10:30 AM CUSTOMER ASSISTANT Clinical Communication Virtual Review in [place], [place] 200 [place] [address] 06/05/2024 10:00 AM CUSTOMER ASSISTANT Lab Department of Infusion Therapy in [address] [phone] Sayda Roberson P.A.-C., M.S. [address] [place] [phone] 06/05/2024 11:45 AM CUSTOMER ASSISTANT Appointment Department of Radiology, [facility] in [place], [place] [address] [place] [phone] Sayda Roberson P.A.-C., M.S. [address] [place] [phone] 06/05/2024 2:45 PM CUSTOMER ASSISTANT Appointment Department of Radiology, [facility], in [place], [place] [address] [place] [phone] Sayda Roberson P.A.-C., M.S. [address] [place] [phone] 06/06/2024 10:00 AM CUSTOMER ASSISTANT Office Visit Department of Urology in [address] [address] Artemio Dover M.D. [address] [place] [phone] 06/26/2024 9:00 AM CUSTOMER ASSISTANT Office Visit Department of Oncology in [place], [place] [address] [place] [address] Donny Kelley M.B.B.S. [facility] [place] [phone] 06/26/2024 9:30 AM CUSTOMER ASSISTANT Infusion Department of Infusion Therapy in [place], [place] [address] [place] [address] Donny Kelley M.B.B.S. [address] [place] [phone] documented as of this encounter Visit Diagnoses Not on filedocumented in this encounter Care Teams Electric Brain Wave Equipment Mechanic Relationship Specialty Start Date End Date Elsewhere, Pcp PCP - General Internal Medicine 06/27/22 documented as of this encounter
--- OUTSIDE RECORDS SUMMARY | 2024-04-26 13:37 | XMS_ITS | Encounter Summary ---
Author Organization [facility] Address [address] [place] [address] Care Team Providers Care Patient Advocate Name Role Phone Elsewhere, Pcp Primary Care Provider Unavailabl e Encounter Details Date Type Department Care Team (Late st Contact Info) Description 02/26/2024 Clinical Communication Department of Infusion Therapy in [place], [place] [address] [place] [phone] Ly Meyer RJayla [address] [place] [address] Social History Tobacco Use Types Packs/Day Years Used Date Smoking Tobacco: Former Cigarettes 0 07/25/1961 - 12/23/1969 Passive Smoke Exposure: Past Smokeless Tobacco: Never Comments:Used lightly ,stopp ed 50years ago Alcohol Use Standard Drinks/Week Comments Yes 2 (1 standard drink = 0.6 oz pur e alcohol) Negligable one beer/ week [facility] Utilities Answer Date Recorded In the past [address] [facility] electric, gas, oil, or water company threatened [...] week 09/28/2022 How often do you attend [facility] or christian services? More than 4 times per year 09/28/2022 Do you belong to any clubs o r organizations such as buddhist groups, unions, fraternal or athletic groups, or [...] care, and heating? Not very hard 09/28/2022 [facility] of Occupat ional Health - Occupational Stress [...] your living situation today? I have a [facility] place to live 11/18/2023 Education Answer Date Recorded What is the highest level of school you have completed or the highest degree you have received? Master's degree (e.g., MA, MS, Kedar, MEd, SAMPLE MOUNTER, OLIVER) 10/01/2020 Sex and Gender Information Value [...] CDT Appointment Department of Pain Medicine in [place], [place] [address] [place] [phone] Markel Avila M.D. [address] [place] [phone] Discharge Disposition: Home or Self Care 06/03/2024 10:30 AM HYDROELECTRIC PLANT OPERATOR Clinical Communication Virtual Review in [place], [place] 200 [place] [address] 06/05/2024 10:00 AM HYDROELECTRIC PLANT OPERATOR Lab Department of Infusion Therapy in [place], [place] [address] [place] [phone] Sayda Roberson P.A.-C., M.S. [address] [place] [phone] 06/05/2024 11:45 AM HYDROELECTRIC PLANT OPERATOR Appointment Department of Radiology, [facility] in [place], [place] [address] [place] [phone] Sayda Roberson P.A.-C., M.S. [address] [place] [phone] 06/05/2024 2:45 PM HYDROELECTRIC PLANT OPERATOR Appointment Department of Radiology, [facility], in [place], [place] [address] [place] [phone] Sayda Roberson P.A.-C., M.S. [address] [place] [phone] 06/06/2024 10:00 AM HYDROELECTRIC PLANT OPERATOR Office Visit Department of Urology in [place], [place] [address] [place] [phone] Artemio Dover M.D. [address] [place] [phone] 06/26/2024 9:00 AM HYDROELECTRIC PLANT OPERATOR Office Visit Department of Oncology in [place], [place] [address] [place] [phone] Donny Kelley, M.B.B.S. [facility]5 [place] [phone] 06/26/2024 9:30 AM HYDROELECTRIC PLANT OPERATOR Infusion Department of Infusion Therapy in [place], [place] [address] [place] [phone] Donny Kelley M.B.B.S. [address] [place] [phone] documented as of this encounter Visit Diagnoses Not on filedocumented in this encounter Care Teams Patient Advocate Relationship Specialty Start Date End Date Elsewhere, Pcp PCP - General Internal Medicine 06/27/22 documented as of this encounter
--- OUTSIDE RECORDS SUMMARY | 2024-04-26 13:37 | XMS_ITS | Encounter Summary ---
Author Organization [facility] Address [address] [place] [address] Care Team Providers Care Drafter Heating And Ventilating Name Role Phone Elsewhere, Pcp Primary Care Provider Unavailabl e Encounter Details Date Type Department Care Team (Late st Contact Info) Description 02/26/2024 10:20 AM CDT Lab Department of Infusion Therapy in [place], [place] [address] [place] [address] Lacy Dennis, AMADOU, C.N.P., M.S.N. [address] [place] [address] Secondary Malignant Neoplasm Bone (HCC) (Primary Dx); [...] pur e alcohol) Negligable one beer/ week [facility] Utilities Answer Date Recorded In the past 12 months has [employer] gas, oil, or water [employer] threatened to shut off services in your [...] How often do you attend chur or orthodox services? More than 4 times per year 09/28/2022 Do you belong to any clubs o r organizations such as mandaeism groups, unions, fraternal or athletic groups, or [...] care, and heating? Not very hard 09/28/2022 [facility] [place] of Occupat ional Health - Occupational Stress [...] Master's degree (e.g., MA, MS, Kedar, MEd, SAND CONTROL WORKER, OLIVER) 10/01/2020 Sex and Gender Information Value [...] CDT Appointment Department of Pain Medicine in [place] [address] [place] [address] Markel Avila M.D. [facility] [place] [phone] Discharge Disposition: Home or Self Care 06/03/2024 10:30 AM TOPOGRAPHICAL SURVEYOR Clinical Communication Virtual Review in [place], [place] 200 [place] [address] 06/05/2024 10:00 AM TOPOGRAPHICAL SURVEYOR Lab Department of Infusion Therapy in [place], [place] [address] [place] [phone] Sayda Roberson P.A.-C., M.S. [address] [place] [phone] 06/05/2024 11:45 AM TOPOGRAPHICAL SURVEYOR Appointment Department of Radiology, [facility] in [place], [place] [address] [place] [phone] Sayda Roberson P.A.-C., M.S. [address] [place] [phone] 06/05/2024 2:45 PM TOPOGRAPHICAL SURVEYOR Appointment Department of Radiology, [facility], in [place], [place] [address] [place] [phone] Sayda Roberson P.A.-C., M.S. [address] [place] [phone] 06/06/2024 10:00 AM TOPOGRAPHICAL SURVEYOR Office Visit Department of Urology in [place], [place] [address] [place] [address] Artemio Dover M.D. [address] [place] [phone] 06/26/2024 9:00 AM TOPOGRAPHICAL SURVEYOR Office Visit Department of Oncology in [place], [place] [address] [place] [address] Donny Kelley M.B.B.S. [address] [place] [phone] 06/26/2024 9:30 AM TOPOGRAPHICAL SURVEYOR Infusion Department of Infusion Therapy in [place] [address] [place] [phone] Donny Kelley M.B.B.S. 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 This test was developed and its performance characteristics determined by [facility] in a manner consistent with CLIA requirements. This test has not been cleared or approved by the U.S. Food and Drug Administration. Blood (Blood, Venous) 02/26/2024 10:15 AM CDT 02/26/2024 1:23 PM CDT Lacy Dennis APRN, C.N.P., M.S.N . LAB BLOOD NON ADD-ON [facility] [address] [place] [address] [facility] [address] [place] [address] [place] [address] * PSA (Prostate-Specific Antigen), Diagnostic (02/26/2024 10:15 AM CDT) Prostate-Specific Ag <0.10 <=6.5 ng/mL 02/26/2024 11:51 AM CDT DT Comment: ----ADDITIONAL INFORMATION---- The testing method is an electrochemiluminescence assay manufactured by [employer] and performed on the Modular or Momo system. Values obtained with different assay methods or kits may be different and cannot be used interchangeably. Test results cannot be interpreted as absolute evidence for the presence or absence of malignant disease. Blood (Blood, Venous) 02/26/2024 10:15 AM CDT 02/26/2024 10:51 AM CDT Raul Hook APRN.N.P., M.S.N . LAB BLOOD ADD-ON Performing Organization Address City/[facility]/ZIP Co de Phone Number [facility] 200 [place], [place] [phone] [place] [address] 200 [place] [address] * Bilirubin, Direct (02/26/2024 10:15 AM CDT) Bilirubin, Direct, S <0.2 0.0 - 0.3 mg/dL 02/26/2024 11:51 AM CDT DT Blood (Blood, Venous) 02/26/2024 10:15 AM CDT 02/26/2024 10:51 AM CDT Raul Hook APRN.N.P., M.S.N . LAB BLOOD ADD-ON [facility] [address] [place] [address] * Bilirubin, Total (02/26/2024 10:15 AM CDT) Bilirubin, Total, S 0.3 0.0 - 1.2 mg/dL 02/26/2024 11:51 AM CDT DTL Blood (Blood, Venous) 02/26/2024 10:15 AM CDT 02/26/2024 10:51 AM CDT More Hook APRNNSimeon., M.S.N . LAB BLOOD ADD-ON Performing Organization Address City/[facility]/ZIP Co de Phone Number [facility] 200 [place] [address] * AST (Aspartate Aminotransferase) (02/26/2024 10:15 AM CDT) Aspartate Aminotransferase (AST), S 24 8 - 48 U/L 02/26/2024 11:51 AM CDT DT Blood (Blood, Venous) 02/26/2024 10:15 AM CDT 02/26/2024 10:51 AM CDT More Hook APRNNSimeon., M.S.N . LAB BLOOD ADD-ON Performing Organization Address City/[facility]/ZIP Co de Phone Number [facility] 200 [place] [address] * ALT (Alanine Aminotransferase) (02/26/2024 10:15 AM CDT) Alanine Aminotransferase (ALT), S 20 7 - 55 U/L 02/26/2024 11:51 AM CDT DTL Blood (Blood, Venous) 02/26/2024 10:15 AM CDT 02/26/2024 10:51 AM CDT More Hook APRNN.P., M.S.N . LAB BLOOD ADD-ON Performing Organization Address City/[facility] Co de Phone Number [facility] [address] [place], [place] [phone] [place] [address] 200 [place] [address] * Alkaline Phosphatase (02/26/2024 10:15 AM CDT) Alkaline Phosphatase, S 48 40 - 129 U/L 02/26/2024 11:51 AM CDT DTL Blood (Blood, Venous) 02/26/2024 10:15 AM CDT 02/26/2024 10:51 AM CDT More Hook APRNNSimeon., M.S.N . LAB BLOOD ADD-ON Performing Organization Address City/[facility] Co de Phone Number [facility] [address] [place], [place] [phone] [place] [phone] documented in this encounter Visit Diagnoses Diagnosis Secondary Malignant Neoplasm Bone (HCC)- Primary Primary Malignant Neoplasm Of Prostate (HCC) Secondary Malignant Neoplasm Liver (HCC) Rising Prostate Specific Antigen Following Treatment For Malignant Cancer Of Prostate documented in this encounter Administered Medications Inactive Administered Medications - up to 3 most recent administrations Medication Order MAR Action Action Date Dose Rate Site sodium chloride 0.9 % injection 20 mL 20 mL, intra-catheter, As needed, line care, Starting on Mon02/26/24 at 0959, Post blood transfusion or post blood sampling. Given 02/26/2024 10:14 AM CDT 20 mL Given 02/26/2024 10:12 AM CDT 20 mL Given 02/26/2024 10:10 AM CDT 20 mL documented in this encounter Care Teams Drafter Heating And Ventilating Relationship Specialty Start Date End Date Elsewhere, Pcp PCP - General Internal Medicine 06/27/22 documented as of this encounter
--- OUTSIDE RECORDS SUMMARY | 2024-04-26 13:37 | XMS_ITS | Encounter Summary ---
Author Organization [facility] Address [address] [place] [address] Care Team Providers Care Concrete Placement Equipment Operator Name Role Phone Elsewhere, Pcp Primary Care Provider Unavailabl e Reason for Referral * MRI/CAT/PET Scan (Routine) - Closed Specialty Diagnoses / Procedures Referred By Alejandro t Referred To Contact Diagnoses Primary Malignant Neoplasm Of Prostate (HCC) 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) Rising Prostate Specific Antigen Following Treatment For Malignant Cancer Of Prostate Procedures PET CT Skull to Thigh PSMA Lacy Dennis APRN, C.N.P., M.S.N. [address] [place] [address] [facility] Referral ID Status Reason Start Date Expiration Date Visits Re quested Visits Authorized [id number] Closed 11/23/2023 11/22/2024 1 1 Reason for Visit * MRI/CAT/PET Scan (Routine) - Closed Specialty Diagnoses / Procedures Referred By Alejandro almaraz Referred To Contact Diagnoses Primary Malignant Neoplasm Of Prostate (HCC) 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) Rising Prostate Specific Antigen Following Treatment For Malignant Cancer Of Prostate Procedures PET CT Skull to Thigh PSMA Lacy Dennis APRN, C.NBeba, M.S.N. [address] [place] [phone] [facility] Referral ID Status Reason Start Date Expiration Date Visits Re quested Visits Authorized [id number] Closed 11/23/2023 11/22/2024 1 1 Encounter Details Date Type Department Care Team (Late st Contact Info) Description 02/26/2024 10:20 AM CDT - 02/26/2024 11:59 PM CDT Hospital Encounter Department of Radiology, [facility], in [place], [place] [address] [place] [phone] Lacy Dennis APRN, C.N.Gage., M.S.N. [address] [place] [phone] Primary Malignant Neoplasm Of Prostate (HCC); Secondary Malignant Neoplasm Bone (HCC); Secondary Malignant Neoplasm Liver (HCC); Rising Prostate Specific Antigen Following Treatment For Malignant Cancer Of Prostate Discharge Disposition: Home or Self Care Social History Tobacco Use Types Packs/Day Years Used Date Smoking Tobacco: Former Cigarettes 0 07/25/1961 - 12/23/1969 Passive Smoke Exposure: Past Smokeless Tobacco: Never Comments:Used lightly ,stopp ed 50years ago Alcohol Use Standard Drinks/Week Comments Yes 2 (1 standard drink = 0.6 oz pur e alcohol) Negligable one beer/ week [facility] Utilities Answer Date Recorded In the past 12 months has [facility] [employer], gas, oil, or water [employer] threatened to shut off services in your [...] any clubs o r organizations such as yazidism groups, unions, fraternal or athletic groups, or [...] care, and heating? Not very hard 09/28/2022 [facility] [place] of Occupat ional Health - Occupational Stress [...] your living situation today? I have a [facility] place to live 11/18/2023 Education Answer Date Recorded What is the highest level of school you have completed or the highest degree you have received? Master's degree (e.g., MA, MS, Kedar, MEd, VIBRATOR OPERATOR, OLIVER) 10/01/2020 Sex and Gender Information [...] No 08/03/2022 documented as of this encounter Medications at Time of Discharge Medication Sig Dispensed Refills Start Date End Date acetaminophen (TYLENOL) 500 mg tablet Take 1,000 mg by mouth as needed for pain, fever, mild pain or score 1-3 of 10, moderate pain or score 4-6 of 10, severe pain or score 7-10 of 10 or headaches[address] aspirin [address] tablet Take 81 mg by mouth daily. 08/24/2018 cholecalciferol (VITAMIN D3) 2,000 Unit capsule Take 2,000 Units by mouth daily. ibuprofen (ADVIL,MOTRIN) 800 mg tablet Take 800 mg by mouth as needed for pain, fever, mild pain or score 1-3 of 10, moderate pain or score 4-6 of 10, severe pain or score 7-10 of 10 or headaches. 09/24/2020 leuprolide, 3 month, (LUPRON) 22.5 mg injection Inject 22.5 mg intramuscularly every 3 (three) months. Every 3 month lisinopriL (PRINIVIL,ZESTRIL) 10 mg tablet Take 10 mg by mouth daily. 02/14/2020 oxyCODONE (ROXICODONE) 5 mg immediate release tabletIndications:Ch ronic Pain/Nonacute Pain Take 1 tablet (5 mg total) by mouth every 4 (four) hours as needed for severe pain or score 7-10 of 10 Indication: Chronic Pain/Nonacute Pain. 180 tablet 09/11/2023 pantoprazole (Protonix) 40 mg EC tablet Take 1 tablet (40 mg total) by mouth every morning before breakfast. 90 tablet 3 01/10/2024 documented as of this encounter Plan of Treatment Upcoming Encounters Date Type Department Care Team (Latest Contact Info) Description 05/13/2024 10:40 AM CDT Appointment Department of Pain Medicine in [address] [phone] Markel Avila M.D. [address] [place] [phone] Discharge Disposition: Home or Self Care 06/03/2024 10:30 AM HOSIERY OPERATOR Clinical Communication Virtual Review in [place], [place] 200 [place] [phone] 06/05/2024 10:00 AM HOSIERY OPERATOR Lab Department of Infusion Therapy in [address] [phone] Sayda Roberson P.A.-C., M.S. [address] [place] [address] [place] [phone] 06/05/2024 11:45 AM HOSIERY OPERATOR Appointment Department of Radiology, [facility], in [place], [place] [address] [place] [phone] Sayda Roberson P.A.-C., M.S. [address] [place] [phone] 06/05/2024 2:45 PM HOSIERY OPERATOR Appointment Department of Radiology, [facility], in [place], [place] [address] [place] [address] Sayda Roberson P.A.-C., M.S. [address] [place] [phone] 06/06/2024 10:00 AM HOSIERY OPERATOR Office Visit Department of Urology in [place], [place] [address] [place] [address] Artemio Dover M.D. [address] [place] [phone] 06/26/2024 9:00 AM HOSIERY OPERATOR Office Visit Department of Oncology in [address] [phone] Donny Kelley M.B.B.S. [address] [place] [phone] 06/26/2024 9:30 AM HOSIERY OPERATOR Infusion Department of Infusion Therapy in [address] [phone] Donny Kelley M.B.B.S. [address] [place] [phone] documented as of this encounter Procedures Procedure Name Priority Date/Time Associated Diagnosis Comments PET CT SKULL TO THIGH PSMA RAD - Routine (most inpatients and all outpatients) 02/26/2024 12:36 PM CDT Primary Malignant Neoplasm Of Prostate (HCC) 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) Rising Prostate Specific Antigen Following Treatment For Malignant Cancer Of Prostate documented in this encounter Results * PET CT Skull to Thigh PSMA [...] PET CT 08/25/2023. INDICATION: Metastatic prostate cancer ([place] 4+4), restaging. Statuspost Y90 therapy to a [...] disease. miPSMA Expression Score: 0 Lacy Dennis APRN C.N.P., M.S.N . [facility] PROCEDURES documented in this encounter Visit Diagnoses Diagnosis Primary Malignant Neoplasm Of Prostate (HCC) 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) Rising Prostate Specific Antigen Following Treatment For Malignant Cancer Of Prostate documented in this encounter Administered Medications Inactive Administered Medications - up to 3 most recent administrations Medication Order MAR Action Action Date Dose Rate Site gallium Ga 68 gozetotide injection (Ga-68 Illuccix/Locametz) 2.7-7.7 millicurie, intravenous, Once, On 02/26/24 at 1145, For 1 dose, Imaging Protocol Orders Given 02/26/2024 11:12 AM CDT 5.22 millicuries Right Antecubital documented in this encounter Care Teams Concrete Placement Equipment Operator Relationship Specialty Start Date End Date Elsewhere, Pcp PCP - General Internal Medicine 06/27/22 documented as of this encounter
== END 2024-04-26 09:49 | disposition home or self-care (01) ==
LOC: NFLDREF 13:32
PROVIDERS: PCP Family Medicine; Referring Provider Family Medicine; Visit Provider Family Medicine
DX: D51.8 Other vitamin B12 deficiency anemias (principal)
CPT/HCPCS: 82607

== ENCOUNTER 2024-10-16 13:21 | Outpatient (CLI) | payer OTHER, SELFPAY | END 2024-10-16 13:22 | disposition home or self-care (01) | PROVIDERS: PCP Family Medicine; Visit Provider Family Medicine | DX: D64.9 Anemia, unspecified (principal); I10 Essential (primary) hypertension; E78.5 Hyperlipidemia, unspecified; R79.89 Other specified abnormal findings of blood chemistry | CPT/HCPCS: 80053; 80061 ==

== ENCOUNTER 2025-01-27 09:20 | Outpatient (CLI) | payer OTHER, SELFPAY | END 2025-01-27 09:21 | disposition home or self-care (01) | LOC: NFLDREF 01-29 04:37 | PROVIDERS: PCP Family Medicine; Referring Provider Family Medicine; Visit Provider Family Medicine | DX: E78.5 Hyperlipidemia, unspecified (principal); I10 Essential (primary) hypertension; E55.9 Vitamin D deficiency, unspecified; R79.89 Other specified abnormal findings of blood chemistry; Z79.899 Other long term (current) drug therapy | CPT/HCPCS: 80053; 80061; 82306; 82607 ==